=== PATIENT | female | born 1950 | race Caucasian/White ===

== ENCOUNTER 2023-05-06 17:05 | Inpatient (IN) ==
[2023-05-06] MEDS ORDERED: PERMETHRIN 5% CR 60 GM TUBE EXT ONE (17:23)
--- NOTE | 2023-05-06 17:49 | Emergency Department Note ---
Impression & Plan Syncope and collapse, Acute UTI ED Provider Note Provider: Reginaldo Resendiz MD DATE OF SERVICE: 05/06/2023 CHIEF COMPLAINT: Syncope HISTORY OF PRESENT ILLNESS: Patient is a 73-year-old female very distant history of seizures presenting from the [facility] office today after having some an episode when she was having some testing and blood work done where she passed out. I guess there is maybe some question if she had a seizure but she is unsure. States she was not that long and denies falling or any pain currently. Maybe a slight headache earlier but states under some tension. Was affected several weeks ago and currently has most recently been staying with stepmother. There is reports per nursing the patient may have exposure to bedbugs and head lice as well. Has had some edema issues ongoing was evaluated here several weeks ago for this. Patient denies any significant chest pain or nausea or abdominal discomfort. Denies recent illness. States her legs continue to be chronically swollen. States she was working to establish with her PCP today as he has not seen her in several years. States compliance with home medications. PAST MEDICAL HISTORY: As noted above MEDICATIONS: Reviewed home medications SOCIAL HISTORY: Currently residing with stepmother after recent infection PHYSICAL EXAM: GENERAL: alert and oriented in no acute distress on stretcher Head: normocephalic and atraumatic EYES: No injection, discharge or icterus. Exotropia NECK: Trachea midline. Supple. ENT: Mucous membranes pink and moist. LUNGS: Airway patent. No retractions or tachypnea HEART: Regular rate and rhythm. No chest wall tenderness ABDOMEN: Soft and non-tender, without guarding or rebound. SKIN: Acyanotic, warm, dry EXTREMITIES: Patient with approximately 2+ bilateral lower extremity swelling without weeping. Some chronic skin changes and scaly skin noted without signi ficant erythema. NEUROLOGICAL: No aphasia. No facial droop or slurred speech. Normal strength and tone in the extremities. Sensation to gross touch normal. Ambulatory. EK bpm sinus rhythm first-degree AV block. Left intravesicular block. No acute ST segment elevation or depression with a QTc of 475. CONTINUOUS CARDIAC MONITORING: was ordered and showed a heart rate of 70s bpm in sinus rhythm first-degree AV block Patient's laboratory studies and imaging reviewed. Differential includes Vasovagal event, dehydration, infection, hypoglycemia, electrolyte abnormalities, cardiac sources, intracerebral event, pulmonary embolism, seizure, toxicologic, neurologic, as well as other pathologies. IMPRESSION/MEDICAL DECISION MAKING: Reported seizure history on Dilantin. Unclear if she did have a seizure today but seems at baseline now. No significant trauma reported. Basic blood work and EKG be obtained today. Chronic swelling and recently worked up for this. Do not feel we need to do further investigation here. Denies any significant shortness of breath or infectious symptoms. No focal neurological deficit. Has been under some increased rest related to recent housing issues as well as establishing with PCP again today. Was having blood work drawn what ever event happened today. Reviewing the [facility] medical record it appears she was unarousable for about 1 minute according to the note with loss of bladder or bowel function and some clamminess with a transient period of had vomiting. It does not clearly sound like she had any postictal period. Had some rhythmic twi tching of her mouth and I briefly for what I can ascertain from the notes. Given return to baseline however without neurological deficit do not feel we need additional CT imaging of the head and neurological evaluation at this time. Dilantin level and basic labs and EKG were obtained. With the nurse reported possible head lice or bedbugs, nursing will assist with washing cleaning with permethrin. Did order the patient's evening Dilantin dose. No significant anemia or leukocytosis. No significant electrolyte abnormality signs of renal dysfunction. No evidence of elevated troponin or transaminitis. Urine does appear concerning for UTI. Not having significant symptoms but this may have provoked the seizure versus syncope episode today. Discussed with the patient. Currently now not able to return to her living situation given the seizure or syncope today with a UTI discussed further observation here. She was in agreement and the hospitalist contacted. DIAGNOSIS: Syncope and collapse, acute UTI DISPOSITION: Hospitalist will evaluate Patient was agreeable with this plan. Past Med/Surg History Social History Smoking Status: Never smoker Preferred Language: Greek Feels Safe at Home: Yes Allergies Allergies Allergy/AdvReac Type Severity Reaction Status Date / Time Penicillins AdvReac Sweaty Verified 05/06/23 20:55 Home Meds Home Medications Medication Instructions Recorded Confirmed phenytoin sodium extended 100 mg 100 mg PO QID 05/06/23 05/06/23 capsule (Dilantin Extended) phenytoin sodium extended 30 mg 30 mg PO BID 05/06/23 05/06/23 capsule (Dilantin) Results & Data (ED) Vital Signs Vital Signs - 24 hr 05/06/23 17:14 05/06/23 20:09 05/06/23 20:33 Pulse Rate 73 75 76 Pulse Rate [Apical] Pulse Rhythm Regular Pulse Strength Normal Respiratory Rate 20 19 Respiratory Effort / Characteristics Non-Labored Spontaneous Respiratory Depth Normal Respiratory Pattern Regular Blood Pressure 141/80 H Blood Pressure [Left Arm] Blood Pressure Mean 100 Blood Pressure Mean [Left Arm] Blood Pressure Position Sitting Pulse Oximetry 95 97 Oxygen Delivery Method Room Air Room Air Sepsis Recent Fever Within 48 Hours No Sepsis New/Unexplained Change in Mental Status No Sepsis Action Taken by Nursing No Action Required 05/06/23 20:55 Pulse Rate Pulse Rate [Apical] 78 Pulse Rhythm Pulse Strength Respiratory Rate 16 Respiratory Effort / Characteristics Respiratory Depth Respiratory Pattern Blood Pressure Blood Pressure [Left Arm] 150/78 H Blood Pressure Mean Blood Pressure Mean [Left Arm] 102 Blood Pressure Position Pulse Oximetry 97 Oxygen Delivery Method Room Air Sepsis Recent Fever Within 48 Hours Sepsis New/Unexplained Change in Mental Status Sepsis Action Taken by Nursing Laboratory Data 05/06/23 Unknown 05/06/23 Unknown Lab Results 05/06/23 05/06/23 05/06/23 Range/Units 20:16 Unknown Unknown WBC 8.30 (4.8-10.8) K/ul RBC 4.96 (4.20-5.40) M/uL Hgb 14.7 (12.0-16.0) g/dl Hct 42.9 (37.0-47.0) % MCV 86.5 (80.0-100.0) fL MCH 29.6 (25.0-34.0) pg MCHC 34.3 (32.0-36.0) g/dL RDW Std Deviation 43.1 (36.4-46.3) fL RDW Coeff of Rosa 13.6 (11.5-14.5) % Plt Count 214 (130-400) K/uL MPV 10.1 (9.4-12.4) fL Immature Gran % (Auto) 0.2 % Neut % (Auto) 72.2 % Lymph % (Auto) 21.9 % [place] % (Auto) 4.8 % Eos % (Auto) 0.4 % Baso % (Auto) 0.5 % Neut # (Auto) 5.99 (1.40-6.50) K/uL Lymph # (Auto) 1.82 (1.2-3.4) K/uL [place] # (Auto) 0.40 (0.11-0.59) K/uL Eos # (Auto) 0.03 (0-0.50) K/uL Baso # (Auto) 0.04 (0-0.2) K/uL Immature Gran # (Auto) 0.02 (0.01-0.20) K/uL Sodium 137 (136-145) mmol/L Potassium 4.2 (3.5-5.1) mmol/L Chloride 104 (98-107) mmol/L Carbon Dioxide 26 (21-32) mmol/L Anion Gap 7 (3-11) BUN 18 (6-23) mg/dl Creatinine 0.72 (0.6-1.2) mg/dl Est Cr Clr Drug Dosing 92.9 ml/min Est GFR ( Amer) 97.0 ml/min Est GFR (Non-Af Amer) 83.7 ml/min BUN/Creatinine Ratio 25.0 H (10-20) Glucose 200 H (70-99(Fasting)) mg/dl Calcium 8.8 (8.6-10.3) mg/dl Magnesium 2.0 (1.7-2.4) mg/dl Total Bilirubin 0.3 (0.2-1.0) mg/dl AST 15 (13-39) U/L ALT 11 (7-52) U/L Alkaline Phosphatase 98 (34-104) U/L Troponin I High Sens 8.9 (0-14) pg/ml Total Protein 6.9 (6.0-8.3) gm/dl Albumin 3.8 (3.4-5.0) gm/dl Globulin 3.1 (2.5-4.0) gm/dl Albumin/Globulin Ratio 1.2 (0.9-2) TSH (0.300-4.500) uIu/ml Urine Color Yellow Urine Appearance Cloudy A (Clear) Urine pH 7.0 (4.5-7.5) Ur Specific [place] 1.017 (1.000-1.030) Urine Protein Negative (Negative) Urine Glucose (UA) Negative (Negative) Urine Ketones Negative (Negative) Urine Blood Trace H (Negative) Urine Nitrite Positive A (Negative) Urine Bilirubin Negative (Negative) Urine Urobilinogen Negative (Negative) Ur Leukocyte Esterase 3+ H (Negative) Urine WBC (Auto) >30 H (0-5) /hpf Urine RBC (Auto) 5-10 H (0-4) /hpf U Hyaline Cast (Auto) 0 (0-5) /lpf U Epithel Cells (Auto) 10-20 H (0-5) /lpf Urine Bacteria (Auto) 1+ H (Negative) Urine Yeast Not Reportable Phenytoin (10-20) mcg/ml SARS-CoV-2, RNA, NAAT (NEGATIVE) 05/06/23 05/06/23 05/06/23 Range/Units Unknown Unknown Unknown WBC (4.8-10.8) K/ul RBC (4.20-5.40) M/uL Hgb (12.0-16.0) g/dl Hct (37.0-47.0) % MCV (80.0-100.0) fL MCH (25.0-34.0) pg MCHC (32.0-36.0) g/dL RDW Std Deviation (36.4-46.3) fL RDW Coeff of Rosa (11.5-14.5) % Plt Count (130-400) K/uL MPV (9.4-12.4) fL Immature Gran % (Auto) % Neut % (Auto) % Lymph % (Auto) % [place] % (Auto) % Eos % (Auto) % Baso % (Auto) % Neut # (Auto) (1.40-6.50) K/uL Lymph # (Auto) (1.2-3.4) K/uL [place] # (Auto) (0.11-0.59) K/uL Eos # (Auto) (0-0.50) K/uL Baso # (Auto) (0-0.2) K/uL Immature Gran # (Auto) (0.01-0.20) K/uL Sodium (136-145) mmol/L Potassium (3.5-5.1) mmol/L Chloride (98-107) mmol/L Carbon Dioxide (21-32) mmol/L Anion Gap (3-11) BUN (6-23) mg/dl Creatinine (0.6-1.2) mg/dl Est Cr Clr Drug Dosing ml/min Est GFR ( Amer) ml/min Est GFR (Non-Af Amer) ml/min BUN/Creatinine Ratio (10-20) Glucose (70-99(Fasting)) mg/dl Calcium (8.6-10.3) mg/dl Magnesium (1.7-2.4) mg/dl Total Bilirubin (0.2-1.0) mg/dl AST (13-39) U/L ALT (7-52) U/L Alkaline Phosphatase (34-104) U/L Troponin I High Sens (0-14) pg/ml Total Protein (6.0-8.3) gm/dl Albumin (3.4-5.0) gm/dl Globulin (2.5-4.0) gm/dl Albumin/Globulin Ratio (0.9-2) TSH 0.871 (0.300-4.500) uIu/ml Urine Color Urine Appearance (Clear) Urine pH (4.5-7.5) Ur Specific [place] (1.000-1.030) Urine Protein (Negative) Urine Glucose (UA) (Negative) Urine Ketones (Negative) Urine Blood (Negative) Urine Nitrite (Negative) Urine Bilirubin (Negative) Urine Urobilinogen (Negative) Ur Leukocyte Esterase (Negative) Urine WBC (Auto) (0-5) /hpf Urine RBC (Auto) (0-4) /hpf U Hyaline Cast (Auto) (0-5) /lpf U Epithel Cells (Auto) (0-5) /lpf Urine Bacteria (Auto) (Negative) Urine Yeast Phenytoin 8.4 L (10-20) mcg/ml SARS-CoV-2, RNA, NAAT NEGATIVE (NEGATIVE) Administered Medications Aztreonam 2,000 mg/ Dextrose 110 mls @ 100 mls/hr IV NOW STA; Protocol Stop: 05/06/23 22:26 Last Admin: 05/06/23 21:54 Dose: 100 mls/hr Documented By: ML Sodium Chloride (Nss 1000ml) 1,000 mls @ 60 mls/hr IV .[id number] ONE Stop: 05/07/23 14:13 Last Admin: 05/06/23 21:54 Dose: 60 mls/hr Documented By: ML Discontinued Medications Ceftriaxone Sodium (Rocephin) 2,000 mg in 70 mls @ 140 mls/hr IV NOW STA Stop: 05/06/23 21:32 Last Admin: 05/06/23 21:22 Dose: Not Given Documented By: NGOC Permethrin (Permethrin 5% Cr 60 Gm Tube) 1 appln EXT ONCE ONE Stop: 05/06/23 17:24 Last Admin: 05/06/23 19:45 Dose: 1 appln Documented By: NGOC Phenytoin Sodium (Phenytoin Sodium Er 100 Mg Cap) 200 mg PO NOW STA Stop: 05/06/23 20:21 Last Admin: 05/06/23 20:54 Dose: 200 mg Documented By: NGOC Phenytoin Sodium (Phenytoin Sodium Er 30 Mg Cap) 60 mg PO NOW STA Stop: 05/06/23 20:21 Last Admin: 05/06/23 20:54 Dose: 60 mg Documented By: NGOC Discharge Plan Visit Data Chief Complaint: Syncope ED Provider: Reginaldo Resendiz Discharge Problem: Syncope and collapse, Acute UTI Patient Disposition: Being Evaluated by Hospitalist Forms Stand Alone Forms: My [facility] Prescriptions Prescriptions: No Action phenytoin sodium extended [Dilantin Extended] 100 mg capsule 100 mg PO QID Dilantin 30 mg Capsule 30 mg PO BID Referrals Referrals: Kiara Wilson DO [Primary Care Provider] -
[2023-05-06] MEDS ORDERED: PHENYTOIN SODIUM ER 100 MG CAP PO STA (20:20)
[2023-05-06] MEDS ORDERED: PHENYTOIN SODIUM ER 30 MG CAP PO STA (20:20)
[2023-05-06 20:34] LABS: Basophils # (auto) 0.04 K/uL (0-0.2); Basophils % (auto) 0.5 %; Eosinophils # (auto) 0.03 K/uL (0-0.50); Eosinophils % (auto) 0.4 %; Hematocrit (blood only) 42.9 % (37.0-47.0); Hemoglobin 14.7 g/dl (12.0-16.0); Immature Granulocytes # (auto) 0.02 K/uL (0.01-0.20); Immature Granulocytes % (auto) 0.2 %; Lymphocytes # (auto) 1.82 K/uL (1.2-3.4); Lymphocytes % (auto) 21.9 %; Mean Corpuscular Hemoglobin 29.6 pg (25.0-34.0); Mean Corpuscular Hgb Conc 34.3 g/dL (32.0-36.0); Mean Corpuscular Volume 86.5 fL (80.0-100.0); Mean Platelet Volume 10.1 fL (9.4-12.4); Monocytes % (auto) 4.8 %; Neutrophils # (auto) 5.99 K/uL (1.40-6.50); Neutrophils % (auto) 72.2 %; Platelet Count 214 K/uL (130-400); RDW Coefficient of Variation 13.6 % (11.5-14.5); RDW Standard Deviation 43.1 fL (36.4-46.3); Red Blood Count 4.96 M/uL (4.20-5.40)
[2023-05-06 20:36] LABS: Appearance Urine Cloudy (Clear); Bilirubin Urine Negative (Negative); Blood Urine Trace (Negative); Cast Urine Automated 0 /lpf (0-5); Color Urine Yellow; Glucose Urine UA Negative (Negative); Ketones Urine Negative (Negative); Leukocyte Esterase Urine 3+ (Negative); Nitrite Urine Positive (Negative); Protein Urine Negative (Negative); Specific Gravity Urine 1.017 (1.000-1.030); Urobilinogen Urine Negative (Negative); WBC Urine Automated >30 /hpf (0-5)
[2023-05-06 20:53] LABS: Albumin Globulin Ratio 1.2 (0.9-2); Albumin Level 3.8 gm/dl (3.4-5.0); Bilirubin,Total 0.3 mg/dl (0.2-1.0); Calcium 8.8 mg/dl (8.6-10.3); Creatinine Clr Calc Pharmacy 92.9 ml/min; Est GFR (Non-African American) 83.7 ml/min; Globulin 3.1 gm/dl (2.5-4.0); Potassium 4.2 mmol/L (3.5-5.1); Total Protein 6.9 gm/dl (6.0-8.3)
[2023-05-06 21:00] LABS: Troponin I High Sensitivity 8.9 pg/ml (0-14)
[2023-05-06 21:01] LABS: Bacteria Urine Automated 1+ (Negative)
[2023-05-06] MEDS ORDERED: cefTRIAXone SODIUM 2,000 MG/70 ML BAG IV STA (21:03)
[2023-05-06] MEDS ORDERED: AZTREONAM 2,000 MG in DEXTROSE 5% 100 ML IV STA (21:21)
[2023-05-06] MEDS ORDERED: LORazepam 0.5 MG TAB PO PRN (21:29)
[2023-05-06] MEDS ORDERED: SODIUM CHLORIDE 0.9% 1000ML 1,000 ML IV ONE (21:34)
--- NOTE | 2023-05-07 01:23 | CT Scan Report ---
Exam(s): CT HEAD Without Contrast EXAM: CT Head Without Intravenous Contrast CLINICAL HISTORY: Reason for exam: crowley, sz. TECHNIQUE: Axial computed tomography images of the head/brain without intravenous contrast. Automated exposure control was utilized for the study. A dose lowering technique was utilized adhering to the principles of ALARA. COMPARISON: No relevant prior studies available. FINDINGS: Brain: The cerebral and cerebellar sulci are mildly prominent consistent with mild brain atrophy. There are a few areas of decreased attenuation in the deep cerebral white matter consistent with mild small vessel ischemic/degenerative changes. No hemorrhage. Ventricles: Unremarkable. No ventriculomegaly. Bones/joints: Unremarkable. No acute fracture. Soft tissues: Unremarkable. Vasculature: Atherosclerotic disease. Sinuses: Unremarkable as visualized. No acute sinusitis. Mastoid air cells: Unremarkable as visualized. No mastoid effusion. IMPRESSION: No acute findings in the head/brain. Electronically signed by: Charly Samuels MD 05/07/23 01:22 AM
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
[2023-05-07] MEDS ORDERED: PROMETHAZINE HCL 12.5 MG in SODIUM CHLORIDE 0.9% 50 ML IV PRN (02:44)
[2023-05-07] MEDS ORDERED: ACETAMINOPHEN 325 MG TAB PO PRN (02:44)
[2023-05-07] MEDS ORDERED: LORazepam 2 MG/1 ML VIAL IV PRN (02:44)
[2023-05-07] MEDS ORDERED: oxyCODONE HCL IR 5 MG TAB (IMMEDIATE RELEASE) PO PRN (02:44)
[2023-05-07 07:16] LABS: Estimated Average Glucose 229 mg/dl; Hemoglobin A1C 9.6 % (4.5-5.6)
[2023-05-07] MEDS ORDERED: GLUCAGON FOR INJ 1 MG VIAL SQ PRN (07:54)
[2023-05-07] MEDS ORDERED: DEXTROSE 50% 50 ML SYRINGE IV PRN (07:54)
[2023-05-07] MEDS ORDERED: CARBOHYDRATES FOR HYPOGLYCEMIA PO PRN (07:54)
[2023-05-07] MEDS ORDERED: GLUCOSE 10 TAB/TUBE PO PRN (07:54)
[2023-05-07] MEDS ORDERED: GLUCOSE 40% GEL 15 GM TUBE PO PRN (07:54)
[2023-05-07] MEDS ORDERED: PHARMACY GLYCEMIC MGMT CONSULT PRN (07:55)
[2023-05-07 09:01] LABS: Basophils # (auto) 0.02 K/uL (0-0.2); Basophils % (auto) 0.3 %; Eosinophils # (auto) 0.07 K/uL (0-0.50); Eosinophils % (auto) 1.2 %; Hematocrit (blood only) 42.8 % (37.0-47.0); Hemoglobin 14.6 g/dl (12.0-16.0); Immature Granulocytes # (auto) 0.01 K/uL (0.01-0.20); Immature Granulocytes % (auto) 0.2 %; Lymphocytes # (auto) 1.85 K/uL (1.2-3.4); Mean Corpuscular Hemoglobin 29.7 pg (25.0-34.0); Mean Corpuscular Hgb Conc 34.1 g/dL (32.0-36.0); Mean Platelet Volume 9.8 fL (9.4-12.4); Monocytes # (auto) 0.51 K/uL (0.11-0.59); Monocytes % (auto) 8.6 %; Neutrophils % (auto) 58.7 %; Platelet Count 220 K/uL (130-400); RDW Coefficient of Variation 13.8 % (11.5-14.5); RDW Standard Deviation 43.6 fL (36.4-46.3); Red Blood Count 4.92 M/uL (4.20-5.40); White Blood Count 5.96 K/ul (4.8-10.8)
[2023-05-07 09:18] LABS: BUN Creatinine Ratio 20.6 (10-20); Creatinine Clr Calc Pharmacy 96.1 ml/min; Est GFR (African American) 101.3 ml/min; Est GFR (Non-African American) 87.4 ml/min; Potassium 3.8 mmol/L (3.5-5.1)
[2023-05-07] MEDS: INSULIN ASPART PER UNIT CHARGE SC SCH ×4 (09:23→20:22)
[2023-05-07] MEDS: LANTUS PER UNIT CHARGE SQ SCH (09:23)
[2023-05-07] MEDS: AZTREONAM 1,000 MG in DEXTROSE 5% 100 ML IV SCH ×2 (09:30→17:47)
--- NOTE | 2023-05-07 09:55 | Neurology Consultation ---
Date of Consultation May 07, 2023 Assessment & Plan (1) Breakthrough seizure: Possible breakthrough seizure in the setting of missed medications and psychosocial factors as well as UTI. There is no reason to reinvent the seizure workup given her history. Can discontinue MRI and EEG. Would simplify her seizure medication regimen to help with adherence. Recommend dilantin 200mg BID. Would not continue the extra 60mg, suspect that was added due to low levels in the past because of missed doses. 400mg daily may in fact be a high dose for her if she is compliant. Can re-check a level in a week. Otherwise can be discharged from a neurologic perspective. Please contact us with further questions. Telehealth Consultation Telehealth Information Telehealth Information: I performed this visit using a real-time telehealth connection between my location and the patients location ([facility]). After connecting through interactive tele-video, patient was identified by name and date of and/or wristband check.Patient (or authorized healthcare inside sales account representative) was informed that this was a telemedicine visit and it was being conducted confidentially over secure lines. My office door was closed and no one else was present in the room with me.Patient (or authorized healthcare inside sales account representative) provided consent to proceed with the visit, expressed an understanding of privacy and security of the telemedicine visit, and gave permission to have a hospital inside sales account representative in the room in order to assist with the visit and to conduct portions of the visit, as needed. I informed the pat ient (or authorized healthcare inside sales account representative) that I reviewed their record and presented the opportunity for them to ask any questions regarding the visit today. The patient agreed to participate. History of Present Illness Reason for Consultation: Seizure Requesting Physician: Dr. Vergara Attending Physician: Gentry Vergara MD History of Present Illness Merary Molina is a 73yo F with a history of epilepsy but well controlled on a complicated regimen of dilantin 100mg 4x daily and 30mg BID. She may have had a breakthrough seizure in the setting of a complex living situation and possible missed med doses. She recalls feeling hot before losing consciousness so is not sure if this was a seizure or syncope. She can not tell me why she is on such a complicated dilantin regimen. Otherwise tangential speech makes any further history difficult. Allergies Allergy/AdvReac Type Severity Reaction Status Date / Time Penicillins AdvReac Sweaty Verified 05/06/23 20:55 Home Medications Medication Instructions Recorded Confirmed Type phenytoin sodium extended 100 mg 100 mg PO QID 05/06/23 05/06/23 History capsule (Dilantin Extended) phenytoin sodium extended 30 mg 30 mg PO BID 05/06/23 05/06/23 History capsule (Dilantin) Patient History Social History Smoking Status: Never smoker Hx Alcohol Use: No Hx Substance Use: No Preferred Language: Yi Communication Ability: Effective Network Engineer Required: No Beliefs That Will Affect Care: None Current Living Situation: Family Current Living Situation Comment: unknown where will be staying Other Information That Helps Us Care for You: No Feels Safe at Home: Yes Safety Concerns: Feels Safe At This Time Assistive Devices: Cane Assistive Devices Comment: cane Review of Systems +seizure Physical Exam Neurological Examination: Mental Status: Awake and alert. Fluent with tangential speech. Comprehension intact. Cranial Nerves: II: pupils 3/3 to 2/2 III/IV/: Versions intact without nystagmus, no gaze preference. VII: Facial expression symmetric VIII: Hearing intact to voice IX/X: Palate elevates symmetrically Motor: Spontaneous movements were antigravity and symmetric Coordination: Movements were non-ataxic Reflexes: Unable to assess over telemedicine Results & Data Vital Signs (Past 12 Hours) Vital Signs Temp Pulse Pulse Resp BP Pulse Ox O2 Del Method 05/07/23 09:44 Room Air 05/07/23 08:32 36.6 C 67 18 129/75 96 Room Air 05/07/23 07:45 65 05/07/23 02:52 65 05/07/23 02:47 36.8 C 66 16 144/66 H 96 Room Air 05/07/23 01:21 72 05/06/23 23:13 81 16 129/56 L 96 Room Air Laboratory Results Abnormal lab results 05/06/23 05/06/23 05/06/23 Range/Units 20:16 Unknown Unknown BUN/Creatinine Ratio 25.0 H (10-20) Glucose 200 H (70-99(Fasting)) mg/dl POC Glucose (70-99) mg/dl Hemoglobin A1c (4.5-5.6) % Urine Appearance Cloudy A (Clear) Urine Blood Trace H (Negative) Urine Nitrite Positive A (Negative) Ur Leukocyte Esterase 3+ H (Negative) Urine WBC (Auto) >30 H (0-5) /hpf Urine RBC (Auto) 5-10 H (0-4) /hpf U Epithel Cells (Auto) 10-20 H (0-5) /lpf Urine Bacteria (Auto) 1+ H (Negative) Phenytoin 8.4 L (10-20) mcg/ml 05/07/23 05/07/23 05/07/23 Range/Units 00:07 08:22 08:33 BUN/Creatinine Ratio 20.6 H (10-20) Glucose 183 H (70-99(Fasting)) mg/dl POC Glucose 190 H (70-99) mg/dl Hemoglobin A1c 9.6 H (4.5-5.6) % Urine Appearance (Clear) Urine Blood (Negative) Urine Nitrite (Negative) Ur Leukocyte Esterase (Negative) Urine WBC (Auto) (0-5) /hpf Urine RBC (Auto) (0-4) /hpf U Epithel Cells (Auto) (0-5) /lpf Urine Bacteria (Auto) (Negative) Phenytoin (10-20) mcg/ml Diagnostic Findings CT head - Unremarkable
[2023-05-07] MEDS: PHENYTOIN SODIUM ER 100 MG CAP PO SCH ×2 (10:36→20:34)
[2023-05-07] MEDS: ENOXAPARIN INJ 40 MG/0.4 ML SYR SQ SCH (10:36)
--- NOTE | 2023-05-07 11:07 | Pharmacy Report ---
Pharmacy Glycemic Short Note 2 - Date of Service May 07, 2023 - Glycemic Short BSG Results (Last 24 hours): 05/06/23 05/07/23 05/07/23 Unknown 08:22 08:33 Glucose 200 H 183 H POC Glucose 190 H OUTPATIENT ANTIDIABETIC REGIMEN: * n/a * A1c 9.6% on admission ASSESSMENT: * 73 year old admitted with breakthrough seizure. Pharmacy consulted for glycemic management. No medications listed on home medication list for diabetes. A1c elevated on admission. * Will be conservative and plan to start basal insulin ~0.2 units/kg daily (adj bw) and novolog stress 1/2 PLAN FOR INPATIENT GLYCEMIC CONTROL: * Hold outpatient oral diabetes medications * Basal insulin * Lantus 15 units daily * Bolus insulin * NovoLog per scale ACHS or Q6hrs while NPO * Goal Range: Low 120 mg/dL - High 160 mg/dL * Correction Factor: 30 mg/dL/unit * Nutritional / Prandial insulin per carb ratio of 1 unit per 10 grams CHO consumed
--- NOTE | 2023-05-07 12:14 | Electrocardiogram Report ---
Test Reason : Blood Pressure : / mmHG Vent. Rate : 069 BPM Atrial Rate : 069 BPM P-R Int : 294 ms QRS Dur : 112 ms QT Int : 444 ms P-R-T Axes : 050 -47 037 degrees QTc Int : 475 ms Sinus rhythm with 1st degree A-V block Left anterior fascicular block Minimal voltage criteria for LVH, may be normal variant Possible Anterior infarct , age undetermined Abnormal ECG When compared with ECG of 11-APR-2023 13:18, Premature ventricular complexes are no longer Present Confirmed by Hector Perry ([id number]) on 05/07/2023 12:13:38 PM Referred By: REFERRED SELF Confirmed By:Hector Perry
--- NOTE | 2023-05-07 15:34 | Hospitalist Progress Note ---
Date of Service May 07, 2023 Assessment & Plan (1) Breakthrough seizure: Plan: Breakthrough seizure H/O Posttraumatic seizure disorder Subtherapeutic Dilantin level ? Medication compliance/missed doses -CT Head:No acute findings in the head/brain. No indication for MRI, EEG per neurology Appreciate neurology input Dilantin dose increased to 200 mg twice daily Continue seizure precautions We will need to recheck Dilantin level in 1 week Needs follow-up with neurology as outpatient DM II--New diagnosis HbA1C: 9.6 Continue insulin per protocol Monitor BGs Diabetic area consulted Abnormal urinalysis Rule out UTI Patient denies any urinary frequency, hematuria, abdominal pain Urine culture pending Empirically on Azactam Chronic lymphedema Venous Doppler from 04/11/23:Currently there is normal compressibility of the deep venous system from the common femoral vein through the proximal calf veins. No superficial venous thrombosis is identified. Will benefit from following lymphedema clinic as outpatient Possible head lice/bedbug infestation as per EMS S/P Permethrin application in ED Social issues Case management to help with discharge planning DVT Px: Lovenox SQ Code Status Full code Admission and Anticipated Discharge Date Admission Date: May 07, 2023 Subjective Patient is seen and examined at bedside Denies any chest pain, dyspnea, dizziness, nausea, vomiting, abdominal pain No other complaints No seizure activity since hospitalization Discussed with neurologist today Review of Systems Review of Systems: All systems reviewed & are unremarkable except as noted in Subjective Physical Exam Physical Exam: Physical Exam: Vitals signs as noted above General Appearance:Obese, no apparent distress Head: normocephalic, Atraumatic Eyes: normal inspection, EOMI Neck: supple, Trachea midline Respiratory/Chest: Decreased breath sounds, CTA, No accessory muscle use Cardiovascular: S1, S2, No murmur Abdomen/GI:Soft, Non tender, Bowel sounds present Extremities/Musculoskeletal:normal inspection, B/L LE edema, lymphedematous changes Neurologic/Psych:AAOX3, grossly no focal neurological deficits Skin: normal color, warm Results & Data Results & Data Vital Signs (Past 12 Hours) Vital Signs Temp Pulse Pulse Resp BP Pulse Ox O2 Del Method 05/07/23 12:30 36.5 C 74 16 136/70 95 Room Air 05/07/23 09:44 Room Air 05/07/23 08:32 36.6 C 67 18 129/75 96 Room Air 05/07/23 07:45 65 Laboratory Results Short CBC 05/06/23 05/07/23 Range/Units Unknown 08:33 WBC 8.30 5.96 (4.8-10.8) K/ul Hgb 14.7 14.6 (12.0-16.0) g/dl Hct 42.9 42.8 (37.0-47.0) % Plt Count 214 220 (130-400) K/uL BMP 05/06/23 05/07/23 Unknown 08:33 Sodium 137 138 Potassium 4.2 3.8 Chloride 104 104 Carbon Dioxide 26 28 BUN 18 14 Creatinine 0.72 0.68 Glucose 200 H 183 H Calcium 8.8 9.0 Liver Function 05/06/23 Range/Units Unknown Total Bilirubin 0.3 (0.2-1.0) mg/dl AST 15 (13-39) U/L ALT 11 (7-52) U/L Alkaline Phosphatase 98 (34-104) U/L Albumin 3.8 (3.4-5.0) gm/dl Urine 05/06/23 Range/Units 20:16 Urine Color Yellow Urine Appearance Cloudy A (Clear) Urine pH 7.0 (4.5-7.5) Ur Specific [place] 1.017 (1.000-1.030) Urine Protein Negative (Negative) Urine Glucose (UA) Negative (Negative)
[2023-05-07] MEDS ORDERED: PHENYTOIN SODIUM ER 30 MG CAP PO SCH (21:00)
[2023-05-08] MEDS ORDERED: INSULIN ASPART PER UNIT CHARGE SC SCH
[2023-05-08] MEDS: AZTREONAM 1,000 MG in DEXTROSE 5% 100 ML IV SCH ×4 (00:39→22:30)
[2023-05-08 06:54] LABS: BUN Creatinine Ratio 22.2 (10-20); Creatinine Clr Calc Pharmacy 81.3 ml/min; Est GFR (African American) 84.1 ml/min; Est GFR (Non-African American) 72.6 ml/min; Potassium 3.7 mmol/L (3.5-5.1)
[2023-05-08] MEDS: LANTUS PER UNIT CHARGE SQ SCH (08:53)
[2023-05-08] MEDS: INSULIN ASPART PER UNIT CHARGE SC SCH ×4 (08:53→20:20)
[2023-05-08] MEDS: PHENYTOIN SODIUM ER 100 MG CAP PO SCH ×2 (08:58→21:02)
[2023-05-08] MEDS: ENOXAPARIN INJ 40 MG/0.4 ML SYR SQ SCH (08:59)
--- NOTE | 2023-05-08 15:26 | Hospitalist Progress Note ---
Date of Service May 08, 2023 Assessment & Plan (1) Breakthrough seizure: Plan: Breakthrough seizure H/O Posttraumatic seizure disorder Subtherapeutic Dilantin level ? Medication compliance/missed doses -CT Head:No acute findings in the head/brain. No indication for MRI, EEG per neurology Appreciate neurology input Dilantin dose increased to 200 mg twice daily Continue seizure precautions We will need to recheck Dilantin level in 1 week Needs follow-up with neurology as outpatient For repeat Dilantin levels subtherapeutic, plan to increase Dilantin to 200 mg a.m., 300 mg p.m. (discussed with neurology on 05/08/23) DM II--New diagnosis HbA1C: 9.6 Continue insulin per protocol Monitor BGs manager food beverage consulted Abnormal urinalysis Rule out UTI Patient denies any urinary frequency, hematuria, abdominal pain Urine culture: Gram-positive cocci Empirically on Azactam Chronic lymphedema Venous Doppler from 04/11/23:Currently there is normal compressibility of the deep venous system from the common femoral vein through the proximal calf veins. No superficial venous thrombosis is identified. Will benefit from following lymphedema clinic as outpatient Possible head lice/bedbug infestation as per EMS S/P Permethrin application in ED Social issues Case management to help with discharge planning DVT Px: Lovenox SQ Code Status Full code Disposition Case management to help with discharge planning Admission and Anticipated Discharge Date Admission Date: May 07, 2023 Subjective Patient is seen and examined at bedside No new complaints Patient concerned about her displacement Denies any chest pain, dyspnea, dizziness, nausea, vomiting, abdominal pain Review of Systems Review of Systems: All systems reviewed & are unremarkable except as noted in Subjective Physical Exam Physical Exam: Physical Exam: Vitals signs as noted above General Appearance:Obese, no apparent distress Head: normocephalic, Atraumatic Eyes: normal inspection, EOMI Neck: supple, Trachea midline Respiratory/Chest: Decreased breath sounds, CTA, No accessory muscle use Cardiovascular: S1, S2, No murmur Abdomen/GI:Soft, Non tender, Bowel sounds present Extremities/Musculoskeletal:normal inspection, B/L LE edema, lymphedematous changes Neurologic/Psych:AAOX3, grossly no focal neurological deficits Skin: normal color, warm Results & Data Results & Data Vital Signs (Past 12 Hours) Vital Signs Temp Pulse Pulse Resp BP Pulse Ox O2 Del Method 05/08/23 15:15 36.6 C 65 18 126/67 95 Room Air 05/08/23 07:15 56 L 05/08/23 11:34 Room Air 05/08/23 07:48 36.4 C L 57 L 18 114/56 L 97 Room Air Laboratory Results [facility] 05/08/23 05:52 Sodium 138 Potassium 3.7 Chloride 103 Carbon Dioxide 28 BUN 18 Creatinine 0.81 Glucose 135 H Calcium 9.0
[2023-05-09 06:53] LABS: Calcium 8.9 mg/dl (8.6-10.3); Creatinine Clr Calc Pharmacy 81.5 ml/min; Est GFR (African American) 84.1 ml/min; Est GFR (Non-African American) 72.6 ml/min; Potassium 3.9 mmol/L (3.5-5.1)
[2023-05-09] MEDS: INSULIN ASPART PER UNIT CHARGE SC SCH ×4 (08:45→21:20)
[2023-05-09] MEDS: LANTUS PER UNIT CHARGE SQ SCH (08:50)
[2023-05-09] MEDS: PHENYTOIN SODIUM ER 100 MG CAP PO SCH ×2 (08:54→21:39)
[2023-05-09] MEDS: ENOXAPARIN INJ 40 MG/0.4 ML SYR SQ SCH (08:54)
[2023-05-09] MEDS: AZTREONAM 1,000 MG in DEXTROSE 5% 100 ML IV SCH (08:55)
--- NOTE | 2023-05-09 10:38 | Pharmacy Report ---
Pharmacy Glycemic Short Note 2 - Date of Service May 09, 2023 - Glycemic Short BSG Results (Last 24 hours): 05/08/23 05/08/23 05/08/23 11:49 16:31 20:06 Glucose POC Glucose 145 H 137 H 140 H 05/09/23 05/09/23 06:10 07:50 Glucose 129 H POC Glucose 123 H OUTPATIENT ANTIDIABETIC REGIMEN: * n/a * A1c 9.6% on admission ASSESSMENT: 05/09/23 * Patient's BSGs yesterday were [phone] mg/dL. Patient received 29 units (15 units of Lantus + 14 units of Novolog). * Fasting today is 123 mg/dL. * Continue current regimen as BSGs well controlled. BACKGROUND * 73 year old admitted with breakthrough seizure. Pharmacy consulted for glycemic management. No medications listed on home medication list for diabetes. A1c elevated on admission. * Will be conservative and plan to start basal insulin ~0.2 units/kg daily (adj bw) and novolog stress 1/2 PLAN FOR INPATIENT GLYCEMIC CONTROL: * Hold outpatient oral diabetes medications * Basal insulin * Lantus 15 units daily * Bolus insulin * NovoLog per scale ACHS or Q6hrs while NPO * Goal Range: Low 110 mg/dL - High 140 mg/dL * Correction Factor: 25 mg/dL/unit * Nutritional / Prandial insulin per carb ratio of 1 unit per 8 grams CHO consumed
[2023-05-09] MEDS: NITROFURANTOIN MONOHYDRATE 100 MG CAP PO SCH ×2 (13:57→21:39)
--- NOTE | 2023-05-09 15:35 | Hospitalist Progress Note ---
Date of Service May 09, 2023 Assessment & Plan (1) Breakthrough seizure: Plan: Breakthrough seizure H/O Posttraumatic seizure disorder Subtherapeutic Dilantin level ? Medication compliance/missed doses -CT Head:No acute findings in the head/brain. No indication for MRI, EEG per neurology Appreciate neurology input Dilantin dose increased to 200 mg twice daily Continue seizure precautions Will need to recheck Dilantin level in 1 week Needs follow-up with neurology as outpatient For repeat Dilantin levels subtherapeutic, plan to increase Dilantin to 200 mg a.m., 300 mg p.m. (discussed with neurology on 05/08/23) Plan to discharge once placement available DM II--New diagnosis HbA1C: 9.6 Continue insulin per protocol Monitor BGs certified adapted physical educator consulted Possible UTI Abnormal urinalysis Urine culture: Gram-positive cocci Empirically on Azactam>> transition to nitrofurantoin Chronic lymphedema Venous Doppler from 04/11/23:Currently there is normal compressibility of the deep venous system from the common femoral vein through the proximal calf veins. No superficial venous thrombosis is identified. Will benefit from following lymphedema clinic as outpatient Possible head lice/bedbug infestation as per EMS S/P Permethrin application in ED Social issues Case management to help with discharge planning DVT Px: Lovenox SQ Code Status Full code Disposition Case management to help with discharge planning Admission and Anticipated Discharge Date Admission Date: May 07, 2023 Subjective Patient is seen and examined at bedside No significant change from yesterday Waiting for placement Denies any chest pain, dyspnea, dizziness, nausea, vomiting, abdominal pain No seizure activity since hospitalization Review of Systems Review of Systems: All systems reviewed & are unremarkable except as noted in Subjective Physical Exam Physical Exam: Physical Exam: Vitals signs as noted above General Appearance:Obese, no apparent distress Head: normocephalic, Atraumatic Eyes: normal inspection, EOMI Neck: supple, Trachea midline Respiratory/Chest: Decreased breath sounds, CTA, No accessory muscle use Cardiovascular: S1, S2, No murmur Abdomen/GI:Soft, Non tender, Bowel sounds present Extremities/Musculoskeletal:normal inspection, B/L LE edema, lymphedematous changes Neurologic/Psych:AAOX3, grossly no focal neurological deficits Skin: normal color, warm Results & Data Results & Data Vital Signs (Past 12 Hours) Vital Signs Temp Pulse Pulse Resp BP Pulse Ox O2 Del Method 05/09/23 11:11 36.5 C 62 18 109/64 93 Room Air 05/09/23 08:00 69 05/09/23 07:30 36.6 C 72 18 122/65 94 Room Air 05/09/23 04:00 36.4 C L 63 20 112/65 96 Room Air Laboratory Results [facility] 05/09/23 06:10 Sodium 137 Potassium 3.9 Chloride 104 Carbon Dioxide 27 BUN 17 Creatinine 0.81 Glucose 129 H Calcium 8.9
[2023-05-10] MEDS: INSULIN ASPART PER UNIT CHARGE SC SCH ×4 (08:50→20:36)
--- NOTE | 2023-05-10 09:01 | Hospitalist Progress Note ---
Date of Service May 10, 2023 Assessment & Plan (1) Syncope and collapse: (2) Breakthrough seizure: (3) New onset type 2 diabetes mellitus: (4) Acute UTI: (5) Homelessness: (6) Food insecurity: (7) Infestation by bed bug: Plan Loss of consciousness surrounding a stressful blood draw situation in the office. Etiologies include but not limited to vasovagal syncope vs breakthrough seizure She has a H/O Posttraumatic seizure disorder and a subtherapeutic Dilantin level ? Medication compliance/missed doses -CT Head:No acute findings in the head/brain. No indication for MRI, EEG per neurology Dilantin regimen was simplified to 200mg BID, reducing her total dose by 60mg daily Recheck dilantin level in one week with follow-up with neurology as outpatient For repeat Dilantin levels that return subtherapeutic, plan to increase Dilantin to 200 mg a.m., 300 mg p.m. (discussed with neurology on 05/08/23) Plan to discharge once placement available DM II--New diagnosis HbA1C: 9.6 Continue insulin per protocol Monitor BGs cover cutter consulted and educated patient on starting metformin at discharge transition Currently receiving insulin inpatient and meeting glycemic targets. Lifestyle changes were recommended including eliminating sugar-sweetened drinks, and diet modifications including more vegetables and less carbs. Plan to add metformin ER 500mg once daily (need to check insurance coverage for this or utilize $4 list option) and discharge with BSG meter and ways to monitor her BSG at home. She will need ophthalmology and podiatry referrals in outpatient setting. 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 Chronic lymphedema Venous Doppler from 04/11/23:Currently there is normal compressibility of the deep venous system from the common femoral vein through the proximal calf veins. No superficial venous thrombosis is identified. Will benefit from following lymphedema clinic as outpatient Possible head lice/bedbug infestation as per EMS S/P Permethrin application in ED ' This is evidence of her poor hygeine referenced by family above. Social issues Case management to help with discharge planning Will also ask psychiatry to ensure there are no obvious mental health issues that may be causing an obstacle for improved QOL and health. DVT Px: Lovenox SQ Code Status Full code Disposition Case management to help with discharge planning Leigh Johnson DO [facility] Hospitalist Admission and Anticipated Discharge Date Admission Date: May 07, 2023 Subjective 73 yo F with recent syncopal episode Doing well today overall with no new symptoms She has not had further seizures since admission She reviewed the story with me stating that she had a presyncopal aura after being told she would be getting her blood drawn in the clinic She doesn't do well with needles and there were issues with the equipment surrounding the blood draw which made her more nervous She put her head between her legs to try to calm down. She was SOB and diaphoretic at that point. She ultimately lost consciousness and when she awoke was clear and knew what took place. She does report a slight bowel incontinence and urinary incontinence on her pad. Per the office note, she lost consciousness and was unarousable for about 1 minute, losing control of bowel and bladder during the episode. She was not seen to have any tonic clonic jerking but had some unlateral twitching of her mouth and eye on the right side. She was oriented to person and place right after She reports a long history of no seizures on dilantin regimen This dilantin dose was actually decreased from 460mg total daily to 400mg total daily per neuro and she remains stable She is eccentric and demonstrates flight of ideas. It is very difficult to focus her on one topic After living in her apt for 17 years she was evicted, she reports because of issues with her neighbor She depends on food stamps and utilizes the [employer] housing system, with limited resources She told me a few things that were concerning including that her hair, which is in a long matted braid, was ruined by a cable knit sweater that she laid on one night and that her hair has been this way for 2-3 years now. She also mentioned not leaving her home to even step outside her apt for 2 years at a time. Per CM call with her brother, family has concerns for patinet being able to care for herself and states she has a long history of hoarding, illogical thought processes, unkempt appearance and poor hygeine. Currently, she is medically stable and is in transition for a more permanent housing situation. She is very kind in her words about her family and neighbors. Review of Systems Review of Systems: All systems were reviewed and negative except as indicated on subjective above. Physical Exam Physical Exam: CONSTITUTIONAL: WNWD, vitals as above, generally well-appearing, NAD EYES: +strabismus noted, +bespectacled, normal conjunctivae, no scleral icterus ENT: external ear and nose normal, MMM NECK: trachea midline RESPIRATORY: clear to auscultation bilaterally, no crackles, rales or wheezes, normal respiratory effort CARDIOVASCULAR: regular rate and rhythm, S1 and 2 heard without murmurs, gallops or rubs, no JVD, no peripheral edema CHEST: inspection of chest was normal GASTROINTESTINAL: soft, nontender, ND, no guarding MUSCULOSKELETAL: strength 5/5 throughout, head is normocephalic and atraumatic SKIN: warm and dry NEUROLOGIC: CN 2-12 grossly intact, no sensory deficit, normal cognition, normal speech, no tremor PSYCHIATRIC: alert cooperative and oriented to person, place and time. Euthymic mood, makes good eye contact, language grossly intact, recent and remote memory grossly intact. Results & Data Results & Data Vital Signs (Past 12 Hours) Vital Signs Temp Pulse Pulse Resp BP Pulse Ox O2 Del Method 05/10/23 03:51 36.9 C 69 18 102/46 L 94 Room Air 05/10/23 00:37 60 05/09/23 22:00 36.5 C 60 20 122/66 95 Room Air Medications Administered Current Inpatient Medications Acetaminophen (Acetaminophen 325 Mg Tab) 650 mg PO Q4H PRN PRN Reason: Pain or Fever Stop: 06/06/23 02:43 Dextrose (Dextrose 50% 50 Ml Syringe) 25 - 50 ml IV UD PRN; Protocol PRN Reason: Hypoglycemia Protocol Stop: 06/06/23 07:53 Enoxaparin Sodium (Enoxaparin Inj 40 Mg/0.4 Ml Syr) 40 mg SQ QAM [facility] Stop: 06/06/23 08:59 Last Admin: 05/09/23 08:54 Dose: 40 mg Glucagon (Glucagon For Inj 1 Mg Vial) 1 mg SQ UD PRN; Protocol PRN Reason: Hypoglycemia Protocol Stop: 06/06/23 07:53 Glucose (Glucose 10 Tab/Tube) 4 - 8 tab PO UD PRN; Protocol PRN Reason: Hypoglycemia Treatment Stop: 06/06/23 07:53 Glucose (Glucose 40% Gel 15 Gm Tube) 15 - 30 gm PO UD PRN; Protocol PRN Reason: Hypoglycemia Protocol Stop: 06/06/23 07:53 Promethazine HCl 12.5 mg/ (Sodium Chloride) 50.5 mls @ 202 mls/hr IV Q6H PRN PRN Reason: Nausea And Vomiting Stop: 06/06/23 02:43 Insulin Aspart (Insulin Aspart Per Unit Charge) 0 units SC ACHS [facility] Stop: 06/06/23 08:14 Last Admin: 05/10/23 08:50 Dose: 5 units Insulin Glargine (Lantus Per Unit Charge) 12 units SQ DAILY [facility] Stop: 06/09/23 08:59 Lorazepam (Lorazepam 2 Mg/1 Ml Vial) 1 mg IV Q10M PRN PRN Reason: seizures Stop: 06/06/23 02:43 Miscellaneous (Carbohydrates For Hypoglycemia ) 15 - 30 gm PO UD PRN PRN Reason: Hypoglycemia Protocol Stop: 06/06/23 07:53 Miscellaneous Information (Pharmacy Glycemic Mgmt Consult) 1 each N/A UD PRN; Protocol PRN Reason: Consult Stop: 06/06/23 07:54 Phenytoin Sodium (Phenytoin Sodium Er 100 Mg Cap) 200 mg PO BID [facility] Stop: 06/06/23 08:59 Last Admin: 05/09/23 21:39 Dose: 200 mg Trimethoprim/Sulfamethoxazole (Sulfamethoxazole/Trimethoprim Ds 800/160mg Tab) 1 tab PO BID [facility] Stop: 05/15/23 08:59
[2023-05-10] MEDS: PHENYTOIN SODIUM ER 100 MG CAP PO SCH ×2 (09:22→20:36)
[2023-05-10] MEDS: ENOXAPARIN INJ 40 MG/0.4 ML SYR SQ SCH (09:23)
[2023-05-10] MEDS: LANTUS PER UNIT CHARGE SQ SCH (09:26)
[2023-05-10] MEDS: SULFAMETHOXAZOLE/TRIMETHOPRIM DS 800/160MG TAB PO SCH ×2 (10:49→20:40)
[2023-05-10] MEDS: NITROFURANTOIN MONOHYDRATE 100 MG CAP PO SCH (11:10)
--- NOTE | 2023-05-11 08:23 | Hospitalist Progress Note ---
Date of Service May 11, 2023 Assessment & Plan (1) Syncope and collapse: (2) Breakthrough seizure: (3) New onset type 2 diabetes mellitus: (4) Acute UTI: (5) Homelessness: (6) Food insecurity: (7) Infestation by bed bug: Plan Loss of consciousness surrounding a stressful blood draw situation in the office. Etiologies include but not limited to vasovagal syncope vs breakthrough seizure She has a H/O Posttraumatic seizure disorder and a subtherapeutic Dilantin level ? Medication compliance/missed doses -CT Head:No acute findings in the head/brain. No indication for MRI, EEG per neurology Dilantin regimen was simplified to 200mg BID, reducing her total dose by 60mg daily Recheck dilantin level in one week with follow-up with neurology as outpatient For repeat Dilantin levels that return subtherapeutic, plan to increase Dilantin to 200 mg a.m., 300 mg p.m. (discussed with neurology on 05/08/23) Plan to discharge once placement available DM II--New diagnosis HbA1C: 9.6 Continue insulin per protocol Monitor BGs certified breastfeeding educator consulted and educated patient on starting metformin at discharge transition Currently receiving insulin inpatient and meeting glycemic targets. Lifestyle changes were recommended including eliminating sugar-sweetened drinks, and diet modifications including more vegetables and less carbs. Plan to add metformin ER 500mg once daily (need to check insurance coverage for this or utilize $4 list option) and discharge with BSG meter and ways to monitor her BSG at home. She will need ophthalmology and podiatry referrals in outpatient setting. 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 Chronic lymphedema Venous Doppler from 04/11/23:Currently there is normal compressibility of the deep venous system from the common femoral vein through the proximal calf veins. No superficial venous thrombosis is identified. Will benefit from following lymphedema clinic as outpatient Possible head lice/bedbug infestation as per EMS S/P Permethrin application in ED ' This is evidence of her poor hygeine referenced by family above. Social issues Case management to help with discharge planning Will also ask psychiatry to ensure there are no obvious mental health issues that may be causing an obstacle for improved QOL and health. DVT Px: Lovenox SQ Code Status Full code Disposition Case management to help with discharge planning Leigh Johnson DO [facility] Hospitalist Admission and Anticipated Discharge Date Admission Date: May 07, 2023 Subjective 73 yo F with recent syncopal episode No issues today she is still speaking in run on sentences with flight of ideas waiting to figure out a safe disposition Review of Systems Review of Systems: All systems were reviewed and negative except as indicated on subjective above. Physical Exam Physical Exam: CONSTITUTIONAL: WNWD, vitals as above, generally well-appearing, NAD EYES: +strabismus noted, +bespectacled, normal conjunctivae, no scleral icterus ENT: external ear and nose normal, MMM NECK: trachea midline RESPIRATORY: clear to auscultation bilaterally, no crackles, rales or wheezes, normal respiratory effort CARDIOVASCULAR: regular rate and rhythm, S1 and 2 heard without murmurs, gallops or rubs, no JVD, no peripheral edema CHEST: inspection of chest was normal GASTROINTESTINAL: soft, nontender, ND, no guarding MUSCULOSKELETAL: strength 5/5 throughout, head is normocephalic and atraumatic SKIN: warm and dry NEUROLOGIC: CN 2-12 grossly intact, no sensory deficit, normal cognition, normal speech, no tremor PSYCHIATRIC: alert cooperative and oriented to person, place and time. Euthymic mood, makes good eye contact, language grossly intact, recent and remote memory grossly intact. Results & Data Results & Data Vital Signs (Past 12 Hours) Vital Signs Temp Pulse Resp BP Pulse Ox O2 Del Method 05/11/23 08:21 36.6 C 69 18 127/68 94 Room Air 05/10/23 23:00 36.6 C 62 18 109/67 95 Room Air Medications Administered Current Inpatient Medications Acetaminophen (Acetaminophen 325 Mg Tab) 650 mg PO Q4H PRN PRN Reason: Pain or Fever Stop: 06/06/23 02:43 Dextrose (Dextrose 50% 50 Ml Syringe) 25 - 50 ml IV UD PRN; Protocol PRN Reason: Hypoglycemia Protocol Stop: 06/06/23 07:53 Enoxaparin Sodium (Enoxaparin Inj 40 Mg/0.4 Ml Syr) 40 mg SQ QAM [facility] Stop: 06/06/23 08:59 Last Admin: 05/10/23 09:23 Dose: 40 mg Glucagon (Glucagon For Inj 1 Mg Vial) 1 mg SQ UD PRN; Protocol PRN Reason: Hypoglycemia Protocol Stop: 06/06/23 07:53 Glucose (Glucose 10 Tab/Tube) 4 - 8 tab PO UD PRN; Protocol PRN Reason: Hypoglycemia Treatment Stop: 06/06/23 07:53 Glucose (Glucose 40% Gel 15 Gm Tube) 15 - 30 gm PO UD PRN; Protocol PRN Reason: Hypoglycemia Protocol Stop: 06/06/23 07:53 Insulin Aspart (Insulin Aspart Per Unit Charge) 0 units SC ACHS [facility] Stop: 06/06/23 08:14 Last Admin: 05/10/23 20:36 Dose: Not Given Insulin Glargine (Lantus Per Unit Charge) 12 units SQ DAILY [facility] Stop: 06/09/23 08:59 Last Admin: 05/10/23 09:26 Dose: 12 units Lorazepam (Lorazepam 2 Mg/1 Ml Vial) 1 mg IV Q10M PRN PRN Reason: seizures Stop: 06/06/23 02:43 Miscellaneous (Carbohydrates For Hypoglycemia ) 15 - 30 gm PO UD PRN PRN Reason: Hypoglycemia Protocol Stop: 06/06/23 07:53 Miscellaneous Information (Pharmacy Glycemic Mgmt Consult) 1 each N/A UD PRN; Protocol PRN Reason: Consult Stop: 06/06/23 07:54 Phenytoin Sodium (Phenytoin Sodium Er 100 Mg Cap) 200 mg PO BID [facility] Stop: 06/06/23 08:59 Last Admin: 05/10/23 20:36 Dose: 200 mg Trimethoprim/Sulfamethoxazole (Sulfamethoxazole/Trimethoprim Ds 800/160mg Tab) 1 tab PO BID [facility] Stop: 05/15/23 08:59 Last Admin: 05/10/23 20:40 Dose: 1 tab
[2023-05-11] MEDS: INSULIN ASPART PER UNIT CHARGE SC SCH ×4 (09:03→21:06)
[2023-05-11] MEDS: LANTUS PER UNIT CHARGE SQ SCH (10:01)
[2023-05-11] MEDS: SULFAMETHOXAZOLE/TRIMETHOPRIM DS 800/160MG TAB PO SCH ×2 (10:02→21:07)
[2023-05-11] MEDS: PHENYTOIN SODIUM ER 100 MG CAP PO SCH ×2 (10:02→21:06)
[2023-05-11] MEDS: ENOXAPARIN INJ 40 MG/0.4 ML SYR SQ SCH (10:02)
--- NOTE | 2023-05-11 15:04 | Psychiatric Consultation ---
Date of Consultation May 11, 2023 Impression / Recommendations Impression Diagnostically consistent with possible history of hoarding based on family collateral and possible component of anxiety versus paranoia related to concerns about old neighbors stealing from her and potential for local crime if she went out shopping alone at night. However, these concerns could be reality-based and no evidence for bizarre delusions, psychosis, dima, depression nor inability to meet her basic needs. It's difficult to fully assess her safety to live on her own in the hospital setting as certainly possible she knows what to tell us as providers regarding how she meets her basic needs but unclear how well she follows through with this while on her own. Certainly possible she may have some type of fixed delusional disorder or schizoid personality disorder though these would not be criteria for inpatient psychiatric hospitalization nor reason to prevent her from living on her own should she desire this. Overall she shows decision making capacity to discuss her housing preferences and goals and no current reason to prevent her from living on her should this be what she chooses to do. (1) Encounter for assessment of decision-making capacity: (2) Homelessness: (3) Food insecurity: (4) Breakthrough seizure: Plan -If family has concerns in the future in the outpatient setting would encourage them to involve [facility] who could do a home visit and likely learn a lot more information about how she functions on her own -If desired trial of seroquel 25mg HS could be considered in the future if paranoia ever worsens; however at this time I would not recommend starting any psychiatric medication as liklihhod of side effects and risks felt to outweigh any potential benefits at this point Psych History Identifying Data 73 yo woman currently homeless with history of seizures admitted for breakthrough seizure, also found to have possible lice/bedbug infection as well as chronic lymphedema. Psychiatry consulted for recommendations regarding housing/disposition. Chief Complaint "I wondered why you all were involved, I've never had any psych problems". History of Present Illness Merary was admitted for breakthrough seizure and her brother expressed concern to case management about her ability to make "sound decisions for herself" per CM note on 05/10/23. CM note reflects brother's collateral that Merary has burned bridges with family and has a history of hoarding, illogical thought processes, unkempt appearance and poor hygiene. In meeting with Merary she is tangential and talkative but easy to interrupt, not pressured and able to tolerate a full assessment. She denies any history of psychiatric conditions, nor hospitalizations. States she has largely had housing issues in the past due to poor management at the apartment she lived in, concerns about neighbors stealing things or due to physical issues limiting her ability to ambulate. She denies any history of depression, dima, psychosis nor hoarding. In discussing reported history of hoarding she explains this was due to inheriting many of her mother's items and not having enough storage space. States she didn't leave her apartment for reported ~2 years at one point in the past due to concerns about neighbors in the building stealing things and not wanting to be "out at night" as crime is increasing even in [place] and she knows of other older people having their groceries stolen while out and about. States her hair got matted and hygiene was impacted due to phsyical injury in May which limited her ability to shower so "my hair became not a priority and then it got so bad I couldn't get a brush through it, not even a beauty shop lady could have done much with it at that point". Speaks to how she meets all her basic needs. Feels safe when she is on her own. Has been looking into options for housing, hopefully she may be able to find funding for a personal penitentiary, thinks there may be other resources to help with this if she doesn't have enough personal fiances. Allergies Allergy/AdvReac Type Severity Reaction Status Date / Time Penicillins AdvReac Sweaty Verified 05/06/23 20:55 Home Medications Medication Instructions Recorded Confirmed Type phenytoin sodium extended 100 mg 100 mg PO QID 05/06/23 05/06/23 History capsule (Dilantin Extended) phenytoin sodium extended 30 mg 30 mg PO BID 05/06/23 05/06/23 History capsule (Dilantin) Patient History Medical History (Updated 05/11/23 @ 17:37 by Esther Coronado MD) Hoarding behavior New onset type 2 diabetes mellitus Social History Smoking Status: Never smoker Hx Alcohol Use: No Hx Substance Use: No Preferred Language: Tajik Communication Ability: Effective Recruiting Intern Required: No Beliefs That Will Affect Care: None Current Living Situation: Family Current Living Situation Comment: unknown where will be staying Other Information That Helps Us Care for You: No Feels Safe at Home: Yes Safety Concerns: Feels Safe At This Time Assistive Devices: Cane Assistive Devices Comment: cane Physical Exam Psychiatric: Orientation: alert and oriented x 3 Apperance: appropriately dressed, appropriately groomed and + disheveled (hair noted to be matted in the back) Eye Contact: good eye contact Motor Behavior: no abnormal motor movements Speech: normal rate/rhythm/volume of speech (expansive, but easy to interrupt ) Affect: euthymic affect Mood: no depressed mood and no anxious mood (though does report some concerns about crime at night) Thought Process: + tangential thought process Thought Content: reality based without delusions Suicidal Thoughts: denies suicidal thoughts Homicidal Thoughts: denies zach icidal thoughts Hallucinations: no auditory hallucinations and no visual hallucinations Cognition: recent memory grossly intact, remote memory grossly intact, attention grossly intact and language grossly intact Estimated Intelligence: consistent with education level Insight: + limited insight Judgment: + limited judgement Vital Signs (Past 24 Hours): Last Vital Signs Temp 36.5 C 05/11/23 12:01 Pulse 69 05/11/23 12:01 Resp 18 05/11/23 12:01 BP 119/69 05/11/23 12:01 Pulse Ox 94 05/11/23 12:01 O2 Del Method Room Air 05/11/23 12:01 Review of Systems All systems reviewed & are unremarkable except as noted in HPI & below Results & Data (PSY) Medications Administered Enoxaparin Sodium (Enoxaparin Inj 40 Mg/0.4 Ml Syr) 40 mg SQ QAM [facility] Stop: 06/06/23 08:59 Last Admin: 05/11/23 10:02 Dose: 40 mg Documented By: Admin: 05/10/23 09:23 Dose: 40 mg Documented By: Admin: 05/09/23 08:54 Dose: 40 mg Documented By: Admin: 05/08/23 08:59 Dose: 40 mg Documented By: Admin: 05/07/23 10:36 Dose: 40 mg Documented By: VERONICA Insulin Aspart (Insulin Aspart Per Unit Charge) 0 units SC ACHS [facility] Stop: 06/06/23 08:14 Last Admin: 05/11/23 12:18 Dose: 4 units Documented By: SHARON Co-signed By: [facility] Admin: 05/11/23 09:03 Dose: 5 units Documented By: SHARON Co-signed By: [facility] Admin: 05/10/23 20:36 Dose: Not Given Documented By: Admin: 05/10/23 17:38 Dose: 7 units Documented By: SHARON Co-signed By: [facility] Admin: 05/10/23 12:26 Dose: 4 units Documented By: SHARON Co-signed By: [facility] Admin: 05/10/23 08:50 Dose: 5 units Documented By: SHARON Co-signed By: [facility] Admin: 05/09/23 21:20 Dose: 1 units Documented By: ROSITA Co-signed By: SAAD Admin: 05/09/23 17:19 Dose: 6 units Documented By: YA Co-signed By: [facility] Admin: 05/09/23 12:38 Dose: 9 units Documented By: YA Co-signed By: [facility] Admin: 05/09/23 08:45 Dose: 6 units Documented By: AANeil Co-signed By: [facility] Admin: 05/08/23 20:20 Dose: Not Given Documented By: Admin: 05/08/23 18:10 Dose: 5 units Documented By: MPC Co-signed By: ALA Admin: 05/08/23 13:34 Dose: 4 units Documented By: MPC Co-signed By: ALA Admin: 05/08/23 08:53 Dose: 5 units Documented By: MPC Co-signed By: RRR Admin: 05/07/23 20:22 Dose: Not Given Documented By: Admin: 05/07/23 17:29 Dose: 9 units Documented By: VERONICA Co-signed By: BYRON Admin: 05/07/23 12:30 Dose: 6 units Documented By: VERONICA Co-signed By: BYRON Admin: 05/07/23 09:23 Dose: 6 units Documented By: VERONICA Co-signed By: BYRON Insulin Glargine (Lantus Per Unit Charge) 12 units SQ DAILY [facility] Stop: 06/09/23 08:59 Last Admin: 05/11/23 10:01 Dose: 12 units Documented By: SHARON Co-signed By: [facility] Admin: 05/10/23 09:26 Dose: 12 units Documented By: SHARON Co-signed By: MARIA ELENA Phenytoin Sodium (Phenytoin Sodium Er 100 Mg Cap) 200 mg PO BID [facility] Stop: 06/06/23 08:59 Last Admin: 05/11/23 10:02 Dose: 200 mg Documented By: Admin: 05/10/23 20:36 Dose: 200 mg Documented By: Admin: 05/10/23 09:22 Dose: 200 mg Documented By: Admin: 05/09/23 21:39 Dose: 200 mg Documented By: Admin: 05/09/23 08:54 Dose: 200 mg Documented By: Admin: 05/08/23 21:02 Dose: 200 mg Documented By: Admin: 05/08/23 08:58 Dose: 200 mg Documented By: Admin: 05/07/23 20:34 Dose: 200 mg Documented By: Admin: 05/07/23 10:36 Dose: 200 mg Documented By: VERONICA Trimethoprim/Sulfamethoxazole (Sulfamethoxazole/Trimethoprim Ds 800/160mg Tab) 1 tab PO BID [facility] Stop: 05/15/23 08:59 Last Admin: 05/11/23 10:02 Dose: 1 tab Documented By: Admin: 05/10/23 20:40 Dose: 1 tab Documented By: Admin: 05/10/23 10:49 Dose: 1 tab Documented By: SHARON Coding Level of Care Code 10816 IN/OBS CONSULT LVL 4,60M Diagnoses Encounter for assessment of decision-making capacity Z01.89 Homelessness Z59.00 Food insecurity Z59.41 Breakthrough seizure G40.919 Time Spent (min) 65
[2023-05-12] MEDS: LANTUS PER UNIT CHARGE SQ SCH (08:19)
[2023-05-12] MEDS: INSULIN ASPART PER UNIT CHARGE SC SCH ×4 (08:20→21:19)
[2023-05-12] MEDS: SULFAMETHOXAZOLE/TRIMETHOPRIM DS 800/160MG TAB PO SCH ×2 (11:00→21:19)
[2023-05-12] MEDS: PHENYTOIN SODIUM ER 100 MG CAP PO SCH ×2 (11:00→21:19)
[2023-05-12] MEDS: ENOXAPARIN INJ 40 MG/0.4 ML SYR SQ SCH (11:00)
--- NOTE | 2023-05-12 14:31 | Pharmacy Report ---
Pharmacy Glycemic Short Note 2 - Date of Service May 12, 2023 - Glycemic Short BSG Results (Last 24 hours): 05/11/23 05/11/23 05/12/23 16:46 20:25 07:52 POC Glucose 96 163 H 87 05/12/23 11:50 POC Glucose 86 OUTPATIENT ANTIDIABETIC REGIMEN: * n/a * A1c 9.6% on admission ASSESSMENT: 05/12/22 * Patient received a total of 29 units of insulin yesterday, of which 12 units were basal * Fasting 87 mg/dL this AM, lower end of goal therefore will scale back ~25% * Loosened CR at lunch time, as BSG values remain on lower end of goal 05/09/23 * Patient's BSGs yesterday were [phone] mg/dL. Patient received 29 units (15 units of Lantus + 14 units of Novolog). * Fasting today is 123 mg/dL. * Continue current regimen as BSGs well controlled. BACKGROUND * 73 year old admitted with breakthrough seizure. Pharmacy consulted for glycemic management. No medications listed on home medication list for diabetes. A1c elevated on admission. * Will be conservative and plan to start basal insulin ~0.2 units/kg daily (adj bw) and novolog stress 1/2 PLAN FOR INPATIENT GLYCEMIC CONTROL: * Hold outpatient oral diabetes medications * Basal insulin * Lantus 9 units daily * Bolus insulin * NovoLog per scale ACHS or Q6hrs while NPO * Goal Range: Low 110 mg/dL - High 140 mg/dL * Correction Factor: 25 mg/dL/unit * Nutritional / Prandial insulin per carb ratio of 1 unit per 15 grams CHO consumed
--- NOTE | 2023-05-12 16:33 | Hospitalist Progress Note ---
Date of Service May 12, 2023 Assessment & Plan (1) Syncope and collapse: (2) Breakthrough seizure: (3) New onset type 2 diabetes mellitus: (4) Acute UTI: (5) Homelessness: (6) Food insecurity: (7) Infestation by bed bug: Plan Syncope versus breakthrough seizure- loss of consciousness surrounding a stressful blood draw situation in the office. Etiologies include but not limited to vasovagal syncope vs breakthrough seizure She has a H/O Posttraumatic seizure disorder and a subtherapeutic Dilantin level ? Medication compliance/missed doses -CT Head:No acute findings in the head/brain. No indication for MRI, EEG per neurology Dilantin regimen was simplified to 200mg BID, reducing her total dose by 60mg daily Recheck dilantin level in one week 05/14, if still subtherapeutic increase Dilantin to 200 mg a.m., 300 mg p.m. (discussed with neurology on 05/08/23) Follow-up with neuro as outpatient DM II--New diagnosis; HbA1C: 9.6 - Continue insulin per protocol - park guide consulted and educated patient on starting metformin at discharge transition - Lifestyle changes were recommended including eliminating sugar-sweetened drinks, and diet modifications including more vegetables and less carbs. - Plan to add metformin ER 500mg once daily (need to check insurance coverage for this or utilize $4 list option) and discharge with BSG meter and ways to monitor her BSG at home. - She will need ophthalmology and podiatry referrals in outpatient setting. UTI 2/2 staph lugdenensis - Empirically on Azactam>> transition to nitrofurantoin>>Septra. Blood cultures negative Chronic lymphedema - Venous Doppler from 04/11/23:Currently there is normal compressibility of the deep venous system from the common femoral vein through the proximal calf veins. No superficial venous thrombosis is identified. - Will benefit from following lymphedema clinic as outpatient Possible head lice/bedbug infestation as per EMS - S/P Permethrin application in ED. This is evidence of her poor hygeine referenced by family above. Social issues - Case management to help with discharge planning -Seen by psych-recommendations noted-'overall she shows disseminating capacity to discuss her housing preferences and goals and no current reason to prevent her from living on her own should this be what she chooses to do'. Hold off on Seroquel for now DVT prophylaxis: Lovenox SQ Disposition- Case management to help with discharge planning Admission and Anticipated Discharge Date Admission Date: May 07, 2023 Subjective Patient was seen and examined at bedside. She feels fine. She denies any ongoing issues. States her left IV site is hurting and was asking if it can come out. No fever, chills, chest pain, shortness of breath, nausea vomiting Review of Systems Review of Systems: All systems reviewed & are unremarkable except as noted in Subjective Physical Exam Physical Exam: General: Sitting comfortably in bed, not in distress, on room air HEENT: Strabismus, MMM Chest: Clear breath sounds bilaterally, no wheezes or crackles CVS: Regular rate and rhythm, normal heart sounds, no murmur Abdomen: Soft, non tender, not distended, normal bowel sounds Neuro: Awake, alert, oriented, conversing well, non focal Extremities: No cyanosis, clubbing, chronic LE lymphedema Results & Data Results & Data Vital Signs (Past 12 Hours) Vital Signs Temp Pulse Resp BP BP Pulse Ox O2 Del Method 05/12/23 14:36 36.7 C 64 16 119/72 95 Room Air 05/12/23 08:11 36.3 C L 64 18 120/65 94 Room Air Medications Administered Current Inpatient Medications Acetaminophen (Acetaminophen 325 Mg Tab) 650 mg PO Q4H PRN PRN Reason: Pain or Fever Stop: 06/06/23 02:43 Dextrose (Dextrose 50% 50 Ml Syringe) 25 - 50 ml IV UD PRN; Protocol PRN Reason: Hypoglycemia Protocol Stop: 06/06/23 07:53 Enoxaparin Sodium (Enoxaparin Inj 40 Mg/0.4 Ml Syr) 40 mg SQ QAM [facility] Stop: 06/06/23 08:59 Last Admin: 05/12/23 11:00 Dose: 40 mg Glucagon (Glucagon For Inj 1 Mg Vial) 1 mg SQ UD PRN; Protocol PRN Reason: Hypoglycemia Protocol Stop: 06/06/23 07:53 Glucose (Glucose 10 Tab/Tube) 4 - 8 tab PO UD PRN; Protocol PRN Reason: Hypoglycemia Treatment Stop: 06/06/23 07:53 Glucose (Glucose 40% Gel 15 Gm Tube) 15 - 30 gm PO UD PRN; Protocol PRN Reason: Hypoglycemia Protocol Stop: 06/06/23 07:53 Insulin Aspart (Insulin Aspart Per Unit Charge) 0 units SC ACHS [facility] Stop: 06/06/23 08:14 Last Admin: 05/12/23 12:03 Dose: 2 units Insulin Glargine (Lantus Per Unit Charge) 9 units SQ DAILY [facility] Stop: 06/11/23 08:59 Last Admin: 05/12/23 08:19 Dose: 9 units Lorazepam (Lorazepam 2 Mg/1 Ml Vial) 1 mg IV Q10M PRN PRN Reason: seizures Stop: 06/06/23 02:43 Miscellaneous (Carbohydrates For Hypoglycemia ) 15 - 30 gm PO UD PRN PRN Reason: Hypoglycemia Protocol Stop: 06/06/23 07:53 Miscellaneous Information (Pharmacy Glycemic Mgmt Consult) 1 each N/A UD PRN; Protocol PRN Reason: Consult Stop: 06/06/23 07:54 Phenytoin Sodium (Phenytoin Sodium Er 100 Mg Cap) 200 mg PO BID [facility] Stop: 06/06/23 08:59 Last Admin: 05/12/23 11:00 Dose: 200 mg Trimethoprim/Sulfamethoxazole (Sulfamethoxazole/Trimethoprim Ds 800/160mg Tab) 1 tab PO BID [facility] Stop: 05/15/23 08:59 Last Admin: 05/12/23 11:00 Dose: 1 tab
[2023-05-13] MEDS: PHENYTOIN SODIUM ER 100 MG CAP PO SCH ×2 (08:32→20:53)
[2023-05-13] MEDS: SULFAMETHOXAZOLE/TRIMETHOPRIM DS 800/160MG TAB PO SCH ×2 (08:32→20:53)
[2023-05-13] MEDS: ENOXAPARIN INJ 40 MG/0.4 ML SYR SQ SCH (08:32)
[2023-05-13] MEDS: INSULIN ASPART PER UNIT CHARGE SC SCH ×4 (08:43→21:31)
[2023-05-13] MEDS: LANTUS PER UNIT CHARGE SQ SCH (08:43)
--- NOTE | 2023-05-13 14:18 | Hospitalist Progress Note ---
Date of Service May 13, 2023 Assessment & Plan (1) Syncope and collapse: (2) Breakthrough seizure: (3) New onset type 2 diabetes mellitus: (4) Homelessness: (5) Food insecurity: (6) Infestation by bed bug: Plan Syncope versus breakthrough seizure- loss of consciousness surrounding a stressful blood draw situation in the office. Etiologies include but not limited to vasovagal syncope vs breakthrough seizure She has a H/O Posttraumatic seizure disorder and a subtherapeutic Dilantin level ? Medication compliance/missed doses -CT Head:No acute findings in the head/brain. No indication for MRI, EEG per neurology Dilantin regimen was simplified to 200mg BID, reducing her total dose by 60mg daily Recheck dilantin level in one week 05/14, if still subtherapeutic increase Dilantin to 200 mg a.m., 300 mg p.m. (discussed with neurology on 05/08/23) Follow-up with neuro as outpatient DM II--New diagnosis; HbA1C: 9.6 - Continue insulin per protocol - nurse educator consulted and educated patient on starting metformin at discharge transition - Lifestyle changes were recommended including eliminating sugar-sweetened drinks, and diet modifications including more vegetables and less carbs. - Plan to add metformin ER 500mg once daily (need to check insurance coverage for this or utilize $4 list option) and discharge with BSG meter and ways to monitor her BSG at home. - She will need ophthalmology and podiatry referrals in outpatient setting. UTI 2/2 staph lugdenensis - Empirically on Azactam>> transition to nitrofurantoin>>Septra. Blood cultures negative Chronic lymphedema - Venous Doppler from 04/11/23:Currently there is normal compressibility of the deep venous system from the common femoral vein through the proximal calf veins. No superficial venous thrombosis is identified. - Will benefit from following lymphedema clinic as outpatient Possible head lice/bedbug infestation as per EMS - S/P Permethrin application in ED. This is evidence of her poor hygeine referenced by family above. Social issues - Case management to help with discharge planning -Seen by psych-recommendations noted-'overall she shows disseminating capacity to discuss her housing preferences and goals and no current reason to prevent her from living on her own should this be what she chooses to do'. Hold off on Seroquel for now DVT prophylaxis: Lovenox SQ Disposition- Case management following to help with discharge planning. She is medically stable for discharge. Admission and Anticipated Discharge Date Admission Date: May 07, 2023 Subjective Patient was seen and examined at bedside. Denies any new issues. No fever, chills, chest pain or shortness of breath nausea or vomiting. Normal appetite and oral intake. Review of Systems Review of Systems: All systems reviewed & are unremarkable except as noted in Subjective Physical Exam Physical Exam: General: Lying comfortably in bed, not in distress, on room air HEENT: Strabismus, MMM Chest: Clear breath sounds bilaterally, no wheezes or crackles CVS: Regular rate and rhythm, normal heart sounds, no murmur Abdomen: Soft, non tender, not distended, normal bowel sounds Neuro: Awake, alert, oriented, conversing well, non focal Extremities: No cyanosis, clubbing, chronic LE lymphedema Results & Data Results & Data Vital Signs (Past 12 Hours) Vital Signs Temp Pulse Resp BP Pulse Ox O2 Del Method 05/13/23 08:00 Room Air 05/13/23 08:01 36.5 C 61 18 110/67 95 Room Air Medications Administered Current Inpatient Medications Acetaminophen (Acetaminophen 325 Mg Tab) 650 mg PO Q4H PRN PRN Reason: Pain or Fever Stop: 06/06/23 02:43 Dextrose (Dextrose 50% 50 Ml Syringe) 25 - 50 ml IV UD PRN; Protocol PRN Reason: Hypoglycemia Protocol Stop: 06/06/23 07:53 Enoxaparin Sodium (Enoxaparin Inj 40 Mg/0.4 Ml Syr) 40 mg SQ QAM [facility] Stop: 06/06/23 08:59 Last Admin: 05/13/23 08:32 Dose: 40 mg Glucagon (Glucagon For Inj 1 Mg Vial) 1 mg SQ UD PRN; Protocol PRN Reason: Hypoglycemia Protocol Stop: 06/06/23 07:53 Glucose (Glucose 10 Tab/Tube) 4 - 8 tab PO UD PRN; Protocol PRN Reason: Hypoglycemia Treatment Stop: 06/06/23 07:53 Glucose (Glucose 40% Gel 15 Gm Tube) 15 - 30 gm PO UD PRN; Protocol PRN Reason: Hypoglycemia Protocol Stop: 06/06/23 07:53 Insulin Aspart (Insulin Aspart Per Unit Charge) 0 units SC ACHS [facility] Stop: 06/06/23 08:14 Last Admin: 05/13/23 12:16 Dose: 2 units Insulin Glargine (Lantus Per Unit Charge) 9 units SQ DAILY [facility] Stop: 06/11/23 08:59 Last Admin: 05/13/23 08:43 Dose: 9 units Lorazepam (Lorazepam 2 Mg/1 Ml Vial) 1 mg IV Q10M PRN PRN Reason: seizures Stop: 06/06/23 02:43 Miscellaneous (Carbohydrates For Hypoglycemia ) 15 - 30 gm PO UD PRN PRN Reason: Hypoglycemia Protocol Stop: 06/06/23 07:53 Miscellaneous Information (Pharmacy Glycemic Mgmt Consult) 1 each N/A UD PRN; Protocol PRN Reason: Consult Stop: 06/06/23 07:54 Phenytoin Sodium (Phenytoin Sodium Er 100 Mg Cap) 200 mg PO BID [facility] Stop: 06/06/23 08:59 Last Admin: 05/13/23 08:32 Dose: 200 mg Trimethoprim/Sulfamethoxazole (Sulfamethoxazole/Trimethoprim Ds 800/160mg Tab) 1 tab PO BID [facility] Stop: 05/15/23 08:59 Last Admin: 05/13/23 08:32 Dose: 1 tab
[2023-05-14 07:06] LABS: Hematocrit (blood only) 42.5 % (37.0-47.0); Hemoglobin 14.5 g/dl (12.0-16.0); Mean Corpuscular Hemoglobin 29.5 pg (25.0-34.0); Mean Corpuscular Hgb Conc 34.1 g/dL (32.0-36.0); Mean Corpuscular Volume 86.4 fL (80.0-100.0); Mean Platelet Volume 10.1 fL (9.4-12.4); Platelet Count 235 K/uL (130-400); RDW Coefficient of Variation 14.1 % (11.5-14.5); RDW Standard Deviation 44.3 fL (36.4-46.3); Red Blood Count 4.92 M/uL (4.20-5.40); White Blood Count 6.05 K/ul (4.8-10.8)
[2023-05-14 07:40] LABS: BUN Creatinine Ratio 18.8 (10-20); Creatinine Clr Calc Pharmacy 68.9 ml/min; Est GFR (African American) 68.5 ml/min; Est GFR (Non-African American) 59.1 ml/min; Magnesium 2.1 mg/dl (1.7-2.4); Phosphorus 3.9 mg/dl (2.5-4.9); Potassium 4.1 mmol/L (3.5-5.1)
--- NOTE | 2023-05-14 07:48 | Pharmacy Report ---
Pharmacy Glycemic Short Note 2 - Date of Service May 14, 2023 - Glycemic Short BSG Results (Last 24 hours): 05/13/23 05/13/23 05/13/23 07:58 11:52 16:34 Glucose POC Glucose 105 H 127 H 155 H 05/13/23 05/14/23 05/14/23 20:51 06:12 07:36 Glucose 119 H POC Glucose 149 H 123 H OUTPATIENT ANTIDIABETIC REGIMEN: * n/a * A1c 9.6% on admission ASSESSMENT: 05/14/23 * BSGs reasonably well-controlled yesterday, ranging 105-155 mg/dL w/ fasting BSG of 123 mg/dL this morning * Received 18 units of insulin (50/50 basal/bolus split) * Will increase basal insulin today ~10% * Patient will require initiation of therapy upon discharge * Discussed with CDE and hospitalist - metformin to be started this evening 05/12/23 * Patient received a total of 29 units of insulin yesterday, of which 12 units were basal * Fasting 87 mg/dL this AM, lower end of goal therefore will scale back ~25% * Loosened CR at lunch time, as BSG values remain on lower end of goal 05/09/23 * Patient's BSGs yesterday were [phone] mg/dL. Patient received 29 units (15 units of Lantus + 14 units of Novolog). * Fasting today is 123 mg/dL. * Continue current regimen as BSGs well controlled. BACKGROUND * 73 year old admitted with breakthrough seizure. Pharmacy consulted for glycemic management. No medications listed on home medication list for diabetes. A1c elevated on admission. * Will be conservative and plan to start basal insulin ~0.2 units/kg daily (adj bw) and novolog stress 1/2 PLAN FOR INPATIENT GLYCEMIC CONTROL: * Metformin ER 500 mg PO daily w/ dinner * Basal insulin * Lantus 10 units daily * Bolus insulin * NovoLog per scale ACHS or Q6hrs while NPO * Goal Range: Low 110 mg/dL - High 140 mg/dL * Correction Factor: 35 mg/dL/unit * Nutritional / Prandial insulin per carb ratio of 1 unit per 15 grams CHO consumed
[2023-05-14] MEDS ORDERED: LANTUS PER UNIT CHARGE SQ SCH (09:00)
[2023-05-14] MEDS: PHENYTOIN SODIUM ER 100 MG CAP PO SCH ×2 (09:07→20:21)
[2023-05-14] MEDS: ENOXAPARIN INJ 40 MG/0.4 ML SYR SQ SCH (09:07)
[2023-05-14] MEDS: SULFAMETHOXAZOLE/TRIMETHOPRIM DS 800/160MG TAB PO SCH ×2 (09:08→20:21)
[2023-05-14] MEDS: INSULIN ASPART PER UNIT CHARGE SC SCH ×4 (09:24→20:23)
--- NOTE | 2023-05-14 15:12 | Hospitalist Progress Note ---
Date of Service May 14, 2023 Assessment & Plan (1) Syncope and collapse: (2) Breakthrough seizure: (3) New onset type 2 diabetes mellitus: (4) Homelessness: (5) Food insecurity: (6) Infestation by bed bug: Plan Syncope versus breakthrough seizure- loss of consciousness surrounding a stressful blood draw situation in the office. Etiologies include but not limited to vasovagal syncope vs breakthrough seizure She has a H/O Posttraumatic seizure disorder and a subtherapeutic Dilantin level ? Medication compliance/missed doses -CT Head:No acute findings in the head/brain. No indication for MRI, EEG per neurology Dilantin regimen was simplified to 200mg BID, reducing her total dose by 60mg daily Repeat dilantin level 05/14 pending, if still subtherapeutic--- plan to increase Dilantin to 200 mg a.m., 300 mg p.m. (discussed with neurology on 05/08/23) Follow-up with neuro as outpatient DM II--New diagnosis; HbA1C: 9.6 - Continue insulin per protocol. Metformin added after discussion with tobacco prevention health educator and pharmacy - Lifestyle changes were recommended including eliminating sugar-sweetened drinks, and diet modifications including more vegetables and less carbs. -For metformin ER 500mg (need to check insurance coverage for this or utilize $4 list option) and discharge with BSG meter and ways to monitor her BSG at home. - She will need ophthalmology and podiatry referrals in outpatient setting. UTI 2/2 staph lugdenensis - Empirically on Azactam>> transition to nitrofurantoin>>Septra. Blood cultures negative Chronic lymphedema - Venous Doppler from 04/11/23:Currently there is normal compressibility of the deep venous system from the common femoral vein through the proximal calf veins. No superficial venous thrombosis is identified. - Will benefit from following lymphedema clinic as outpatient Possible head lice/bedbug infestation as per EMS - S/P Permethrin application in ED. This is evidence of her poor hygeine referenced by family above. Social issues - Case management to help with discharge planning -Seen by psych-recommendations noted-'overall she shows disseminating capacity to discuss her housing preferences and goals and no current reason to prevent her from living on her own should this be what she chooses to do'. Hold off on Seroquel for now DVT prophylaxis: Lovenox SQ Disposition- Case management following to help with discharge planning. She is medically stable for discharge. Admission and Anticipated Discharge Date Admission Date: May 07, 2023 Subjective Patient was seen and examined at bedside. No new issues. No fever, chills, chest pain or shortness of breath nausea or vomiting. She was wondering if she could get her clothes laundried prior to discharge. Review of Systems Review of Systems: All systems reviewed & are unremarkable except as noted in Subjective Physical Exam Physical Exam: General: Lying comfortably in bed, not in distress, on room air HEENT: Strabismus, MMM Chest: Clear breath sounds bilaterally, no wheezes or crackles CVS: Regular rate and rhythm, normal heart sounds, no murmur Abdomen: Soft, non tender, not distended, normal bowel sounds Neuro: Awake, alert, oriented, conversing well, non focal Extremities: No cyanosis, clubbing, chronic LE lymphedema Results & Data Results & Data Vital Signs (Past 12 Hours) Vital Signs Temp Pulse Resp BP Pulse Ox O2 Del Method 05/14/23 14:43 36.7 C 62 17 125/71 97 Room Air 05/14/23 07:35 36.5 C 60 18 126/69 94 Room Air Laboratory Results Short CBC 05/14/23 Range/Units 06:12 WBC 6.05 (4.8-10.8) K/ul Hgb 14.5 (12.0-16.0) g/dl Hct 42.5 (37.0-47.0) % Plt Count 235 (130-400) K/uL BMP 05/14/23 06:12 Sodium 137 Potassium 4.1 Chloride 103 Carbon Dioxide 26 BUN 18 Creatinine 0.96 Glucose 119 H Calcium 9.0 Medications Administered Current Inpatient Medications Acetaminophen (Acetaminophen 325 Mg Tab) 650 mg PO Q4H PRN PRN Reason: Pain or Fever Stop: 06/06/23 02:43 Dextrose (Dextrose 50% 50 Ml Syringe) 25 - 50 ml IV UD PRN; Protocol PRN Reason: Hypoglycemia Protocol Stop: 06/06/23 07:53 Enoxaparin Sodium (Enoxaparin Inj 40 Mg/0.4 Ml Syr) 40 mg SQ QAM [facility] Stop: 06/06/23 08:59 Last Admin: 05/14/23 09:07 Dose: 40 mg Glucagon (Glucagon For Inj 1 Mg Vial) 1 mg SQ UD PRN; Protocol PRN Reason: Hypoglycemia Protocol Stop: 06/06/23 07:53 Glucose (Glucose 10 Tab/Tube) 4 - 8 tab PO UD PRN; Protocol PRN Reason: Hypoglycemia Treatment Stop: 06/06/23 07:53 Glucose (Glucose 40% Gel 15 Gm Tube) 15 - 30 gm PO UD PRN; Protocol PRN Reason: Hypoglycemia Protocol Stop: 06/06/23 07:53 Insulin Aspart (Insulin Aspart Per Unit Charge) 0 units SC ACHS [facility] Stop: 06/06/23 08:14 Last Admin: 05/14/23 12:49 Dose: 4 units Insulin Glargine (Lantus Per Unit Charge) 10 units SQ DAILY [facility] Stop: 06/11/23 08:59 Last Admin: 05/14/23 09:25 Dose: 10 units Lorazepam (Lorazepam 2 Mg/1 Ml Vial) 1 mg IV Q10M PRN PRN Reason: seizures Stop: 06/06/23 02:43 Metformin HCl (Metformin Hcl Er 500 Mg Tabcr) 500 mg PO DAILY@1700 [facility] Stop: 06/13/23 16:59 Miscellaneous (Carbohydrates For Hypoglycemia ) 15 - 30 gm PO UD PRN PRN Reason: Hypoglycemia Protocol Stop: 06/06/23 07:53 Miscellaneous Information (Pharmacy Glycemic Mgmt Consult) 1 each N/A UD PRN; Protocol PRN Reason: Consult Stop: 06/06/23 07:54 Phenytoin Sodium (Phenytoin Sodium Er 100 Mg Cap) 200 mg PO BID [facility] Stop: 06/06/23 08:59 Last Admin: 05/14/23 09:07 Dose: 200 mg Trimethoprim/Sulfamethoxazole (Sulfamethoxazole/Trimethoprim Ds 800/160mg Tab) 1 tab PO BID [facility] Stop: 05/15/23 08:59 Last Admin: 05/14/23 09:08 Dose: 1 tab
[2023-05-14] MEDS ORDERED: metFORMIN HCL ER 500 MG TABCR PO SCH ×2 (17:00→21:00)
[2023-05-14] MEDS: metFORMIN HCL ER 500 MG TABCR PO SCH (17:33)
[2023-05-15] MEDS: PHENYTOIN SODIUM ER 100 MG CAP PO SCH ×2 (09:38→21:40)
[2023-05-15] MEDS: INSULIN ASPART PER UNIT CHARGE SC SCH ×4 (09:38→20:58)
[2023-05-15] MEDS: ENOXAPARIN INJ 40 MG/0.4 ML SYR SQ SCH (09:39)
[2023-05-15] MEDS: LANTUS PER UNIT CHARGE SQ SCH (09:42)
--- NOTE | 2023-05-15 16:53 | Hospitalist Progress Note ---
Date of Service May 15, 2023 Assessment & Plan (1) Syncope and collapse: (2) Breakthrough seizure: (3) New onset type 2 diabetes mellitus: (4) Homelessness: (5) Food insecurity: (6) Infestation by bed bug: Plan Syncope versus breakthrough seizure- loss of consciousness surrounding a stressful blood draw situation in the office. Etiologies include but not limited to vasovagal syncope vs breakthrough seizure She has a H/O Posttraumatic seizure disorder and a subtherapeutic Dilantin level ? Medication compliance/missed doses -CT Head:No acute findings in the head/brain. No indication for MRI, EEG per neurology Dilantin regimen was simplified to 200mg BID, reducing her total dose by 60mg daily Repeat dilantin level 05/14 therapeutic at 10. Follow-up with neuro as outpatient DM II--New diagnosis; HbA1C: 9.6 - Continue insulin per protocol. Metformin added after discussion with grab operator and pharmacy - Lifestyle changes were recommended including eliminating sugar-sweetened drinks, and diet modifications including more vegetables and less carbs. -For metformin ER 500mg (need to check insurance coverage for this or utilize $4 list option) and discharge with BSG meter and ways to monitor her BSG at home. - She will need ophthalmology and podiatry referrals in outpatient setting. UTI 2/2 staph lugdenensis - Empirically on Azactam>> transition to nitrofurantoin>>Septra. Blood cultures negative Chronic lymphedema - Venous Doppler from 04/11/23:Currently there is normal compressibility of the deep venous system from the common femoral vein through the proximal calf veins. No superficial venous thrombosis is identified. - Will benefit from following lymphedema clinic as outpatient Possible head lice/bedbug infestation as per EMS - S/P Permethrin application in ED. This is evidence of her poor hygeine referenced by family above. Social issues - Case management to help with discharge planning -Seen by psych-recommendations noted-'overall she shows disseminating capacity to discuss her housing preferences and goals and no current reason to prevent her from living on her own should this be what she chooses to do'. Hold off on Seroquel for now DVT prophylaxis: Lovenox SQ Disposition- Case management following to help with discharge planning. She is medically stable for discharge. Admission and Anticipated Discharge Date Admission Date: May 07, 2023 Subjective Patient was seen and examined at bedside. She has been making calls for housing, no success so far. No other medical issues. No fever, chills, chest pain, shortness of breath, N/V. Normal oral intake. Physical Exam Physical Exam: General: Lying comfortably in bed, not in distress, on room air HEENT: Strabismus, MMM Chest: Clear breath sounds bilaterally, no wheezes or crackles CVS: Regular rate and rhythm, normal heart sounds, no murmur Abdomen: Soft, non tender, not distended, normal bowel sounds Neuro: Awake, alert, oriented, conversing well, non focal Extremities: No cyanosis, clubbing, chronic LE lymphedema Results & Data Results & Data Vital Signs (Past 12 Hours) Vital Signs Temp Pulse Resp BP Pulse Ox O2 Del Method 05/15/23 11:02 36.6 C 66 20 114/71 95 Room Air 05/15/23 07:18 36.6 C 60 16 110/66 95 Room Air
[2023-05-15] MEDS: metFORMIN HCL ER 500 MG TABCR PO SCH (16:59)
[2023-05-16] MEDS: PHENYTOIN SODIUM ER 100 MG CAP PO SCH ×2 (09:07→21:28)
[2023-05-16] MEDS: ENOXAPARIN INJ 40 MG/0.4 ML SYR SQ SCH (09:08)
[2023-05-16] MEDS: INSULIN ASPART PER UNIT CHARGE SC SCH ×4 (09:29→21:23)
[2023-05-16] MEDS: LANTUS PER UNIT CHARGE SQ SCH (09:30)
[2023-05-16] MEDS: metFORMIN HCL ER 500 MG TABCR PO SCH (17:52)
--- NOTE | 2023-05-16 18:07 | Hospitalist Progress Note ---
Date of Service May 16, 2023 Assessment & Plan (1) Syncope and collapse: (2) Breakthrough seizure: (3) New onset type 2 diabetes mellitus: (4) Homelessness: (5) Food insecurity: (6) Infestation by bed bug: Plan Syncope versus breakthrough seizure- loss of consciousness surrounding a stressful blood draw situation in the office. Etiologies include but not limited to vasovagal syncope vs breakthrough seizure She has a H/O Posttraumatic seizure disorder and a subtherapeutic Dilantin level ? Medication compliance/missed doses -CT Head:No acute findings in the head/brain. No indication for MRI, EEG per neurology Dilantin regimen was simplified to 200mg BID, reducing her total dose by 60mg daily Repeat dilantin level 05/14 therapeutic at 10. Follow-up with neuro as outpatient DM II--New diagnosis; HbA1C: 9.6 - Continue insulin per protocol. Metformin added after discussion with family educator and pharmacy - Lifestyle changes were recommended including eliminating sugar-sweetened drinks, and diet modifications including more vegetables and less carbs. -For metformin ER 500mg (need to check insurance coverage for this or utilize $4 list option) and discharge with BSG meter and ways to monitor her BSG at home. - She will need ophthalmology and podiatry referrals in outpatient setting. UTI 2/2 staph lugdenensis - Empirically on Azactam>> transition to nitrofurantoin>>Septra. Blood cultures negative Chronic lymphedema - Venous Doppler from 04/11/23:Currently there is normal compressibility of the deep venous system from the common femoral vein through the proximal calf veins. No superficial venous thrombosis is identified. - Will benefit from following lymphedema clinic as outpatient Possible head lice/bedbug infestation as per EMS - S/P Permethrin application in ED. This is evidence of her poor hygeine referenced by family above. Social issues - Case management to help with discharge planning -Seen by psych-recommendations noted-'overall she shows disseminating capacity to discuss her housing preferences and goals and no current reason to prevent her from living on her own should this be what she chooses to do'. Hold off on Seroquel for now DVT prophylaxis: Lovenox SQ Disposition- Case management following to help with discharge planning. She is medically stable for discharge. Admission and Anticipated Discharge Date Admission Date: May 07, 2023 Subjective Patient was seen and examined at bedside. States she did get good sleep overnight and feels somewhat foggy in the head. She hopes that once to get some good sleep, it will improve. She has been trying to find placement and making phone calls. No fever, chills, chest pain or shortness of breath or nausea or vomiting. No other issues. Review of Systems Review of Systems: All systems reviewed & are unremarkable except as noted in Subjective Physical Exam Physical Exam: General: Lying comfortably in bed, not in distress, on room air HEENT: Strabismus, MMM Chest: Clear breath sounds bilaterally, no wheezes or crackles CVS: Regular rate and rhythm, normal heart sounds, no murmur Abdomen: Soft, non tender, not distended, normal bowel sounds Neuro: Awake, alert, oriented, conversing well, non focal Extremities: No cyanosis, clubbing, chronic LE lymphedema Results & Data Results & Data Vital Signs (Past 12 Hours) Vital Signs Temp Pulse Resp BP Pulse Ox O2 Del Method 05/16/23 14:53 36.7 C 63 16 120/64 94 Room Air 05/16/23 07:58 36.5 C 65 18 138/77 96 Room Air
[2023-05-17] MEDS: ENOXAPARIN INJ 40 MG/0.4 ML SYR SQ SCH (09:39)
[2023-05-17] MEDS: PHENYTOIN SODIUM ER 100 MG CAP PO SCH ×2 (09:40→21:32)
[2023-05-17] MEDS: INSULIN ASPART PER UNIT CHARGE SC SCH ×4 (09:41→21:08)
[2023-05-17] MEDS: LANTUS PER UNIT CHARGE SQ SCH (09:47)
--- NOTE | 2023-05-17 12:20 | Hospitalist Progress Note ---
Date of Service May 17, 2023 Assessment & Plan (1) Syncope and collapse: (2) Breakthrough seizure: (3) New onset type 2 diabetes mellitus: (4) Homelessness: (5) Food insecurity: (6) Infestation by bed bug: Plan Syncope versus breakthrough seizure- loss of consciousness surrounding a stressful blood draw situation in the office. Etiologies include but not limited to vasovagal syncope vs breakthrough seizure She has a H/O Posttraumatic seizure disorder and a subtherapeutic Dilantin level ? Medication compliance/missed doses -CT Head:No acute findings in the head/brain. No indication for MRI, EEG per neurology Dilantin regimen was simplified to 200mg BID, reducing her total dose by 60mg daily Repeat dilantin level 05/14 therapeutic at 10. Follow-up with neuro as outpatient DM II--New diagnosis; HbA1C: 9.6 - Continue insulin per protocol. Metformin added after discussion with clinical unit educator and pharmacy - Lifestyle changes were recommended including eliminating sugar-sweetened drinks, and diet modifications including more vegetables and less carbs. -For metformin ER 500mg (need to check insurance coverage for this or utilize $4 list option) and discharge with BSG meter and ways to monitor her BSG at home. - She will need ophthalmology and podiatry referrals in outpatient setting. UTI 2/2 staph lugdenensis - Empirically on Azactam>> transition to nitrofurantoin>>Septra. Blood cultures negative Chronic lymphedema - Venous Doppler from 04/11/23:Currently there is normal compressibility of the deep venous system from the common femoral vein through the proximal calf veins. No superficial venous thrombosis is identified. - Will benefit from following lymphedema clinic as outpatient Possible head lice/bedbug infestation as per EMS - S/P Permethrin application in ED. This is evidence of her poor hygeine referenced by family above. Social issues - Case management to help with discharge planning -Seen by psych-recommendations noted-'overall she shows disseminating capacity to discuss her housing preferences and goals and no current reason to prevent her from living on her own should this be what she chooses to do'. Hold off on Seroquel for now DVT prophylaxis: Lovenox SQ Disposition- Case management following to help with discharge planning. She is medically stable for discharge. I spoke to his brother Fran over the phone Admission and Anticipated Discharge Date Admission Date: May 07, 2023 Subjective Patient was seen and examined at bedside. She is still making phone calls for housing arrangement and making progress. No new medical issues. No fever, chills, chest pain or shortness of breath no nausea or vomiting. Review of Systems Review of Systems: All systems reviewed & are unremarkable except as noted in Subjective Physical Exam Physical Exam: General: Lying comfortably in bed, not in distress, on room air HEENT: Strabismus, MMM Chest: Clear breath sounds bilaterally, no wheezes or crackles CVS: Regular rate and rhythm, normal heart sounds, no murmur Abdomen: Soft, non tender, not distended, normal bowel sounds Neuro: Awake, alert, oriented, conversing well, non focal Extremities: No cyanosis, clubbing, chronic LE lymphedema Results & Data Results & Data Vital Signs (Past 12 Hours) Vital Signs Temp Pulse Resp BP Pulse Ox O2 Del Method O2 Del Method 05/17/23 11:54 36.3 C L 74 18 144/86 H 91 Room Air 05/17/23 11:59 Room Air 05/17/23 07:58 36.5 C 59 L 18 119/67 95 Room Air
--- NOTE | 2023-05-17 12:35 | Pharmacy Report ---
Pharmacy Glycemic Short Note 2 - Date of Service May 17, 2023 - Glycemic Short BSG Results (Last 24 hours): 05/16/23 05/16/23 05/17/23 16:05 20:08 07:48 POC Glucose 114 H 145 H 94 05/17/23 11:39 POC Glucose 126 H OUTPATIENT ANTIDIABETIC REGIMEN: * n/a * A1c 9.6% on admission ASSESSMENT: 05/17/23 * BSGs remain reasonably well-controlled, ranging 110-163 mg/dL yesterday w/ fasting BSG of 94 mg/dL * Today is day #4 of metformin - patient tolerating * Will slightly reduce basal insulin today, no other changes today * Patient is stable for discharge, but still working on housing arrangement post discharge 05/14/23 * BSGs reasonably well-controlled yesterday, ranging 105-155 mg/dL w/ fasting BSG of 123 mg/dL this morning * Received 18 units of insulin (50/50 basal/bolus split) * Will increase basal insulin today ~10% * Patient will require initiation of therapy upon discharge * Discussed with CDE and hospitalist - metformin to be started this evening BACKGROUND * 73 year old admitted with breakthrough seizure. Pharmacy consulted for glycemic management. No medications listed on home medication list for diabetes. A1c elevated on admission. * Will be conservative and plan to start basal insulin ~0.2 units/kg daily (adj bw) and novolog stress 1/2 PLAN FOR INPATIENT GLYCEMIC CONTROL: * Metformin ER 500 mg PO daily w/ dinner * Basal insulin * Lantus 6 units daily * Bolus insulin * NovoLog per scale ACHS or Q6hrs while NPO * Goal Range: Low 110 mg/dL - High 140 mg/dL * Correction Factor: 50 mg/dL/unit * Nutritional / Prandial insulin per carb ratio of 1 unit per 20 grams CHO consumed
[2023-05-17] MEDS: metFORMIN HCL ER 500 MG TABCR PO SCH (17:24)
[2023-05-18] MEDS: ENOXAPARIN INJ 40 MG/0.4 ML SYR SQ SCH (08:14)
[2023-05-18] MEDS: PHENYTOIN SODIUM ER 100 MG CAP PO SCH ×2 (08:15→21:24)
[2023-05-18] MEDS: INSULIN ASPART PER UNIT CHARGE SC SCH ×4 (08:22→21:24)
[2023-05-18] MEDS: LANTUS PER UNIT CHARGE SQ SCH (08:23)
--- NOTE | 2023-05-18 12:34 | Hospitalist Progress Note ---
Date of Service May 18, 2023 Assessment & Plan (1) Syncope and collapse: (2) Breakthrough seizure: (3) New onset type 2 diabetes mellitus: (4) Homelessness: (5) Food insecurity: (6) Infestation by bed bug: Plan Syncope versus breakthrough seizure- loss of consciousness surrounding a stressful blood draw situation in the office. Etiologies include but not limited to vasovagal syncope vs breakthrough seizure She has a H/O Posttraumatic seizure disorder and a subtherapeutic Dilantin level ? Medication compliance/missed doses -CT Head:No acute findings in the head/brain. No indication for MRI, EEG per neurology Dilantin regimen was simplified to 200mg BID, reducing her total dose by 60mg daily Repeat dilantin level 05/14 therapeutic at 10. Follow-up with neuro as outpatient DM II--New diagnosis; HbA1C: 9.6 - Continue insulin per protocol. Metformin added after discussion with supply chain generalist and pharmacy - Lifestyle changes were recommended including eliminating sugar-sweetened drinks, and diet modifications including more vegetables and less carbs. -For metformin ER 500mg (need to check insurance coverage for this or utilize $4 list option) and discharge with BSG meter and ways to monitor her BSG at home. - She will need ophthalmology and podiatry referrals in outpatient setting. UTI 2/2 staph lugdenensis -Complete antibiotic course, Azactam>> transition to nitrofurantoin>>Septra. Blood cultures negative Chronic lymphedema - Venous Doppler from 04/11/23:Currently there is normal compressibility of the deep venous system from the common femoral vein through the proximal calf veins. No superficial venous thrombosis is identified. - Will benefit from following lymphedema clinic as outpatient Possible head lice/bedbug infestation as per EMS - S/P Permethrin application in ED. This is evidence of her poor hygeine referenced by family above. Social issues - Case management to help with discharge planning -Seen by psych-recommendations noted-'overall she shows disseminating capacity to discuss her housing preferences and goals and no current reason to prevent her from living on her own should this be what she chooses to do'. Hold off on Seroquel for now DVT prophylaxis: Lovenox SQ Disposition- Case management following to help with discharge planning. She is medically stable for discharge. Admission and Anticipated Discharge Date Admission Date: May 07, 2023 Subjective Patient was seen and examined at bedside. She is at baseline and denies any new issues. No fever, chills, chest pain, shortness of breath, nausea or vomiting Review of Systems Review of Systems: All systems reviewed & are unremarkable except as noted in Subjective Physical Exam Physical Exam: General: Lying comfortably in bed, not in distress, on room air HEENT: Strabismus, MMM Chest: Clear breath sounds bilaterally, no wheezes or crackles CVS: Regular rate and rhythm, normal heart sounds, no murmur Abdomen: Soft, non tender, not distended, normal bowel sounds Neuro: Awake, alert, oriented, conversing well, non focal Extremities: No cyanosis, clubbing, chronic LE lymphedema Results & Data Results & Data Vital Signs (Past 12 Hours) Vital Signs Temp Pulse Resp BP Pulse Ox O2 Del Method 05/18/23 08:06 36.9 C 63 20 131/73 94 Room Air Medications Administered Current Inpatient Medications Acetaminophen (Acetaminophen 325 Mg Tab) 650 mg PO Q4H PRN PRN Reason: Pain or Fever Stop: 06/06/23 02:43 Dextrose (Dextrose 50% 50 Ml Syringe) 25 - 50 ml IV UD PRN; Protocol PRN Reason: Hypoglycemia Protocol Stop: 06/06/23 07:53 Enoxaparin Sodium (Enoxaparin Inj 40 Mg/0.4 Ml Syr) 40 mg SQ QAM FABIAN Stop: 06/06/23 08:59 Last Admin: 05/18/23 08:14 Dose: 40 mg Glucagon (Glucagon For Inj 1 Mg Vial) 1 mg SQ UD PRN; Protocol PRN Reason: Hypoglycemia Protocol Stop: 06/06/23 07:53 Glucose (Glucose 10 Tab/Tube) 4 - 8 tab PO UD PRN; Protocol PRN Reason: Hypoglycemia Treatment Stop: 06/06/23 07:53 Glucose (Glucose 40% Gel 15 Gm Tube) 15 - 30 gm PO UD PRN; Protocol PRN Reason: Hypoglycemia Protocol Stop: 06/06/23 07:53 Insulin Aspart (Insulin Aspart Per Unit Charge) 0 units SC ACHS [facility] Stop: 06/06/23 08:14 Last Admin: 05/18/23 08:22 Dose: 1 units Insulin Glargine (Lantus Per Unit Charge) 6 units SQ DAILY FABIAN Stop: 06/14/23 08:59 Last Admin: 05/18/23 08:23 Dose: 6 units Lorazepam (Lorazepam 2 Mg/1 Ml Vial) 1 mg IV Q10M PRN PRN Reason: seizures Stop: 06/06/23 02:43 Metformin HCl (Metformin Hcl Er 500 Mg Tabcr) 500 mg PO DAILY@1700 [facility] Stop: 06/13/23 16:59 Last Admin: 05/17/23 17:24 Dose: 500 mg Miscellaneous (Carbohydrates For Hypoglycemia ) 15 - 30 gm PO UD PRN PRN Reason: Hypoglycemia Protocol Stop: 06/06/23 07:53 Miscellaneous Information (Pharmacy Glycemic Mgmt Consult) 1 each N/A UD PRN; Protocol PRN Reason: Consult Stop: 06/06/23 07:54 Phenytoin Sodium (Phenytoin Sodium Er 100 Mg Cap) 200 mg PO BID [facility] Stop: 06/06/23 08:59 Last Admin: 05/18/23 08:15 Dose: 200 mg
[2023-05-18] MEDS: metFORMIN HCL ER 500 MG TABCR PO SCH (18:16)
[2023-05-19] MEDS: INSULIN ASPART PER UNIT CHARGE SC SCH ×4 (08:34→21:24)
[2023-05-19] MEDS: ENOXAPARIN INJ 40 MG/0.4 ML SYR SQ SCH (08:43)
[2023-05-19] MEDS: LANTUS PER UNIT CHARGE SQ SCH (08:44)
[2023-05-19] MEDS: metFORMIN HCL ER 500 MG TABCR PO SCH ×2 (08:46→17:55)
[2023-05-19] MEDS: PHENYTOIN SODIUM ER 100 MG CAP PO SCH ×2 (08:46→21:24)
--- NOTE | 2023-05-19 13:55 | Hospitalist Progress Note ---
Date of Service May 19, 2023 Assessment & Plan (1) Syncope and collapse: (2) Breakthrough seizure: (3) New onset type 2 diabetes mellitus: (4) Homelessness: (5) Food insecurity: (6) Infestation by bed bug: Plan Syncope versus breakthrough seizure- loss of consciousness surrounding a stressful blood draw situation in the office. Etiologies include but not limited to vasovagal syncope vs breakthrough seizure She has a H/O Posttraumatic seizure disorder and a subtherapeutic Dilantin level ? Medication compliance/missed doses -CT Head:No acute findings in the head/brain. No indication for MRI, EEG per neurology Dilantin regimen was simplified to 200mg BID, reducing her total dose by 60mg daily Repeat dilantin level 05/14 therapeutic at 10. Follow-up with neuro as outpatient DM II--New diagnosis; HbA1C: 9.6 - Continue insulin per protocol. Metformin added after discussion with dredge operator and pharmacy - Lifestyle changes were recommended including eliminating sugar-sweetened drinks, and diet modifications including more vegetables and less carbs. -For metformin ER 500mg (need to check insurance coverage for this or utilize $4 list option) and discharge with BSG meter and ways to monitor her BSG at home. - She will need ophthalmology and podiatry referrals in outpatient setting. UTI 2/2 staph lugdenensis -Complete antibiotic course, Azactam>> transition to nitrofurantoin>>Septra. Blood cultures negative Chronic lymphedema - Venous Doppler from 04/11/23:Currently there is normal compressibility of the deep venous system from the common femoral vein through the proximal calf veins. No superficial venous thrombosis is identified. - Will benefit from following lymphedema clinic as outpatient Possible head lice/bedbug infestation as per EMS - S/P Permethrin application in ED. This is evidence of her poor hygeine referenced by family above. Social issues - Case management to help with discharge planning -Seen by psych-recommendations noted-'overall she shows disseminating capacity to discuss her housing preferences and goals and no current reason to prevent her from living on her own should this be what she chooses to do'. Hold off on Seroquel for now DVT prophylaxis: Lovenox SQ Disposition- Case management following to help with discharge planning. She is medically stable for discharge. Admission and Anticipated Discharge Date Admission Date: May 07, 2023 Subjective Patient was seen and examined at bedside. She feels good. Denies any ongoing issues. No fever, chills, chest pain, shortness of breath, nausea or vomiting. She states she has to pay her bill tomorrow and is wondering if she can get the documents out of her belongings which are sealed. Review of Systems Review of Systems: All systems reviewed & are unremarkable except as noted in Subjective Physical Exam Physical Exam: General: Lying comfortably in bed, not in distress, on room air HEENT: Strabismus, MMM Chest: Clear breath sounds bilaterally, no wheezes or crackles CVS: Regular rate and rhythm, normal heart sounds, no murmur Abdomen: Soft, non tender, not distended, normal bowel sounds Neuro: Awake, alert, oriented, conversing well, non focal Extremities: No cyanosis, clubbing, chronic LE lymphedema Results & Data Results & Data Vital Signs (Past 12 Hours) Vital Signs Temp Pulse Resp BP Pulse Ox O2 Del Method 05/19/23 13:29 36.7 C 64 20 128/62 95 Room Air 05/19/23 07:33 36.8 C 67 16 119/61 92 Room Air
[2023-05-20] MEDS: INSULIN ASPART PER UNIT CHARGE SC SCH ×4 (09:15→20:27)
[2023-05-20] MEDS: LANTUS PER UNIT CHARGE SQ SCH (09:15)
[2023-05-20] MEDS: ENOXAPARIN INJ 40 MG/0.4 ML SYR SQ SCH (09:21)
[2023-05-20] MEDS: metFORMIN HCL ER 500 MG TABCR PO SCH ×2 (09:21→16:55)
[2023-05-20] MEDS: PHENYTOIN SODIUM ER 100 MG CAP PO SCH ×2 (09:21→20:27)
--- NOTE | 2023-05-20 13:34 | Hospitalist Progress Note ---
Date of Service May 20, 2023 Assessment & Plan (1) Syncope and collapse: (2) Breakthrough seizure: (3) New onset type 2 diabetes mellitus: (4) Homelessness: (5) Food insecurity: (6) Infestation by bed bug: Plan Syncope versus breakthrough seizure- loss of consciousness surrounding a stressful blood draw situation in the office. Etiologies include but not limited to vasovagal syncope vs breakthrough seizure She has a H/O Posttraumatic seizure disorder and a subtherapeutic Dilantin level ? Medication compliance/missed doses -CT Head:No acute findings in the head/brain. No indication for MRI, EEG per neurology Dilantin regimen was simplified to 200mg BID, reducing her total dose by 60mg daily Repeat dilantin level 05/14 therapeutic at 10. Follow-up with neuro as outpatient DM II--New diagnosis; HbA1C: 9.6 - Continue insulin per protocol. Metformin added after discussion with administrative services officer and pharmacy - Lifestyle changes were recommended including eliminating sugar-sweetened drinks, and diet modifications including more vegetables and less carbs. -For metformin ER 500mg (need to check insurance coverage for this or utilize $4 list option) and discharge with BSG meter and ways to monitor her BSG at home. - She will need ophthalmology and podiatry referrals in outpatient setting. UTI 2/2 staph lugdenensis -Complete antibiotic course, Azactam>> transition to nitrofurantoin>>Septra. Blood cultures negative Chronic lymphedema - Venous Doppler from 04/11/23:Currently there is normal compressibility of the deep venous system from the common femoral vein through the proximal calf veins. No superficial venous thrombosis is identified. - Will benefit from following lymphedema clinic as outpatient Possible head lice/bedbug infestation as per EMS - S/P Permethrin application in ED. This is evidence of her poor hygeine referenced by family above. Social issues - Case management to help with discharge planning -Seen by psych-recommendations noted-'overall she shows disseminating capacity to discuss her housing preferences and goals and no current reason to prevent her from living on her own should this be what she chooses to do'. Hold off on Seroquel for now DVT prophylaxis: Lovenox SQ Disposition- Case management following to help with discharge planning. Left message for his brother to call back to discuss disposition. She is medically stable for discharge. Admission and Anticipated Discharge Date Admission Date: May 07, 2023 Subjective Patient was seen and examined at bedside. No new issues. States he is still working on her housing issue. No fever, chills, chest pain or shortness of breath, nausea or vomiting. Review of Systems Review of Systems: All systems reviewed & are unremarkable except as noted in Subjective Physical Exam Physical Exam: General: Lying comfortably in bed, not in distress, on room air HEENT: Strabismus, MMM Chest: Clear breath sounds bilaterally, no wheezes or crackles CVS: Regular rate and rhythm, normal heart sounds, no murmur Abdomen: Soft, non tender, not distended, normal bowel sounds Neuro: Awake, alert, oriented, conversing well, non focal Extremities: No cyanosis, clubbing, chronic LE lymphedema Results & Data Results & Data Vital Signs (Past 12 Hours) Vital Signs Temp Pulse Resp BP Pulse Ox O2 Del Method 05/20/23 07:56 36.7 C 72 20 117/65 95 Room Air
[2023-05-21] MEDS: PHENYTOIN SODIUM ER 100 MG CAP PO SCH ×2 (08:52→21:28)
[2023-05-21] MEDS: metFORMIN HCL ER 500 MG TABCR PO SCH ×2 (08:53→17:03)
[2023-05-21] MEDS: ENOXAPARIN INJ 40 MG/0.4 ML SYR SQ SCH (08:54)
[2023-05-21] MEDS: INSULIN ASPART PER UNIT CHARGE SC SCH ×4 (08:58→20:49)
[2023-05-21] MEDS: LANTUS PER UNIT CHARGE SQ SCH (09:03)
--- NOTE | 2023-05-21 16:07 | Hospitalist Progress Note ---
Date of Service May 21, 2023 Assessment & Plan (1) Syncope and collapse: (2) Breakthrough seizure: (3) New onset type 2 diabetes mellitus: (4) Homelessness: (5) Food insecurity: (6) Infestation by bed bug: Plan Syncope versus breakthrough seizure- loss of consciousness surrounding a stressful blood draw situation in the office. Etiologies include but not limited to vasovagal syncope vs breakthrough seizure She has a H/O Posttraumatic seizure disorder and a subtherapeutic Dilantin level ? Medication compliance/missed doses -CT Head:No acute findings in the head/brain. No indication for MRI, EEG per neurology Dilantin regimen was simplified to 200mg BID, reducing her total dose by 60mg daily Repeat dilantin level 05/14 therapeutic at 10. Follow-up with neuro as outpatient DM II--New diagnosis; HbA1C: 9.6 - Continue insulin per protocol. Metformin added after discussion with nursing educator and pharmacy - Lifestyle changes were recommended including eliminating sugar-sweetened drinks, and diet modifications including more vegetables and less carbs. -For metformin ER 500mg (need to check insurance coverage for this or utilize $4 list option) and discharge with BSG meter and ways to monitor her BSG at home. - She will need ophthalmology and podiatry referrals in outpatient setting. UTI 2/2 staph lugdenensis -Complete antibiotic course, Azactam>> transition to nitrofurantoin>>Septra. Blood cultures negative Chronic lymphedema - Venous Doppler from 04/11/23:Currently there is normal compressibility of the deep venous system from the common femoral vein through the proximal calf veins. No superficial venous thrombosis is identified. - Will benefit from following lymphedema clinic as outpatient Possible head lice/bedbug infestation as per EMS - S/P Permethrin application in ED. This is evidence of her poor hygeine referenced by family above. Social issues - Case management to help with discharge planning -Seen by psych-recommendations noted-'overall she shows disseminating capacity to discuss her housing preferences and goals and no current reason to prevent her from living on her own should this be what she chooses to do'. Hold off on Seroquel for now DVT prophylaxis: Lovenox SQ Disposition- Case management following to help with discharge planning. I was unable to talk to his brother again today to discuss disposition. She is medically stable for discharge. Admission and Anticipated Discharge Date Admission Date: May 07, 2023 Subjective Patient was seen and examined at bedside. No new issues. No fever, chills, N/V/SOB. Awaiting housing situation to be fixed prior to discharge Physical Exam Physical Exam: General: Lying comfortably in bed, not in distress, on room air HEENT: Strabismus, MMM Chest: Clear breath sounds bilaterally, no wheezes or crackles CVS: Regular rate and rhythm, normal heart sounds, no murmur Abdomen: Soft, non tender, not distended, normal bowel sounds Neuro: Awake, alert, oriented, conversing well, non focal Extremities: No cyanosis, clubbing, chronic LE lymphedema Results & Data Results & Data Vital Signs (Past 12 Hours) Vital Signs Temp Pulse Resp BP Pulse Ox O2 Del Method 05/21/23 07:17 36.6 C 60 20 120/66 92 Room Air
[2023-05-22] MEDS: ENOXAPARIN INJ 40 MG/0.4 ML SYR SQ SCH (08:36)
[2023-05-22] MEDS: PHENYTOIN SODIUM ER 100 MG CAP PO SCH ×2 (08:36→21:53)
[2023-05-22] MEDS: metFORMIN HCL ER 500 MG TABCR PO SCH ×2 (08:36→17:34)
[2023-05-22] MEDS: INSULIN ASPART PER UNIT CHARGE SC SCH ×4 (08:40→21:47)
[2023-05-22] MEDS: LANTUS PER UNIT CHARGE SQ SCH (08:40)
--- NOTE | 2023-05-22 14:03 | Hospitalist Progress Note ---
Date of Service May 22, 2023 Assessment & Plan (1) Syncope and collapse: (2) Breakthrough seizure: (3) New onset type 2 diabetes mellitus: (4) Homelessness: (5) Food insecurity: (6) Infestation by bed bug: Plan Syncope versus breakthrough seizure Loss of consciousness surrounding a stressful blood draw situation in the office. Etiologies include but not limited to vasovagal syncope vs breakthrough seizure She has a H/O Posttraumatic seizure disorder and a subtherapeutic Dilantin level ?Medication compliance/missed doses CT Head:No acute findings in the head/brain. No indication for MRI, EEG per neurology Dilantin regimen was simplified to 200mg BID Repeat dilantin level 05/14 therapeutic at 10. Follow-up with neuro as outpatient DM II--New diagnosis; HbA1C: 9.6 Continue insulin per protocol. Continue Metformin started on admission Will need to check insurance coverage for this or utilize $4 list option) and discharge with BSG meter and ways to monitor her BSG at home. Provided more education about Lifestyle changes She will need ophthalmology and podiatry referrals in outpatient setting. UTI 2/2 staph ludanyaenensis Completed antibiotic course Chronic lymphedema Venous Doppler from 04/11/23:Currently there is normal compressibility of the deep venous system from the common femoral vein through the proximal calf veins. No superficial venous thrombosis is identified. Will benefit from following lymphedema clinic as outpatient Possible head lice/bedbug infestation as per EMS S/P Permethrin parvez Social issues CM working with patient/family regarding homeless situation Psych eval noted. Patient has decision making capacity DVT prophylaxis: Melonie PRICE I spent a total of 30 minutes coordinating, documenting and providing care for this patient excluding time spent in performance of separately billed services Admission and Anticipated Discharge Date Admission Date: May 07, 2023 Subjective Patient seen and examined Denies any complaints on ROS today Physical Exam Constitutional: + well hydrated; no acute distress Eyes: Strabismus ENMT: external ear and nose normal, oropharynx normal Respiratory: normal respiratory effort, lungs clear to auscultation Cardiovascular: Rate/Rhythm: regular rate and regular rhythm S1 S2 Gastrointestinal (Abdomen): normal bowel sounds, soft, nontender, no hepatosplenomegaly Musculoskeletal: no cyanosis or clubbing, extremities motor strength 5/5 Neurologic: PERRL, EOMI, accommodation nl, no face palsy, no dysarthria Psychiatric: AOx3 Results & Data Results & Data Vital Signs (Past 12 Hours) Vital Signs Temp Pulse Resp BP Pulse Ox O2 Del Method 05/22/23 07:35 36.6 C 71 16 116/73 94 Room Air Laboratory Results Abnormal lab results 05/21/23 05/21/23 05/22/23 Range/Units 16:34 20:37 07:54 POC Glucose 130 H 126 H 109 H (70-99) mg/dl 05/22/23 Range/Units 12:10 POC Glucose 100 H (70-99) mg/dl
[2023-05-23] MEDS: metFORMIN HCL ER 500 MG TABCR PO SCH ×2 (09:41→17:19)
[2023-05-23] MEDS: ENOXAPARIN INJ 40 MG/0.4 ML SYR SQ SCH (09:42)
[2023-05-23] MEDS: PHENYTOIN SODIUM ER 100 MG CAP PO SCH ×2 (09:43→22:12)
[2023-05-23] MEDS: INSULIN ASPART PER UNIT CHARGE SC SCH ×4 (09:51→20:50)
[2023-05-23] MEDS: LANTUS PER UNIT CHARGE SQ SCH (09:52)
--- NOTE | 2023-05-23 14:04 | Hospitalist Progress Note ---
Date of Service May 23, 2023 Assessment & Plan (1) Syncope and collapse: (2) Breakthrough seizure: (3) New onset type 2 diabetes mellitus: (4) Homelessness: (5) Food insecurity: (6) Infestation by bed bug: Plan Syncope versus breakthrough seizure Loss of consciousness surrounding a stressful blood draw situation in the office. Etiologies include but not limited to vasovagal syncope vs breakthrough seizure She has a H/O Posttraumatic seizure disorder and a subtherapeutic Dilantin level ?Medication compliance/missed doses CT Head:No acute findings in the head/brain. No indication for MRI, EEG per neurology Dilantin regimen was simplified to 200mg BID Repeat dilantin level 05/14 therapeutic at 10. Follow-up with neuro as outpatient DM II--New diagnosis; HbA1C: 9.6 Continue insulin per protocol. Continue Metformin started on admission Will need to check insurance coverage for this or utilize $4 list option) and discharge with BSG meter and ways to monitor her BSG at home. Provided more education about Lifestyle changes She will need ophthalmology and podiatry referrals in outpatient setting. UTI 2/2 staph lugdenensis Completed antibiotic course Chronic lymphedema Venous Doppler from 04/11/23:Currently there is normal compressibility of the deep venous system from the common femoral vein through the proximal calf veins. No superficial venous thrombosis is identified. Will benefit from following lymphedema clinic as outpatient Possible head lice/bedbug infestation as per EMS S/P Permethrin parvez Social issues Psych eval noted. Patient has decision making capacity I discussed with brother Fran over the phone. I updated him on conditions/diagnoses managed and that patient has been medically stable for discharge. We discussed options since patient is homeless and patient does not live in [place]. He will like to provide him with list of low cost hotels/motels he can try to book for patient to stay at while they continue looking for senior care housing options for her. notified. Will follow up with brother tomorrow. Possible discharge within next few days DVT prophylaxis: Lovenox DEE I spent a total of 30 minutes coordinating, documenting and providing care for this patient excluding time spent in performance of separately billed services Admission and Anticipated Discharge Date Admission Date: May 07, 2023 Subjective Patient seen and examined Denied any complaints Physical Exam Constitutional: + well hydrated; no acute distress ENMT: external ear and nose normal, oropharynx normal Respiratory: normal respiratory effort, lungs clear to auscultation Cardiovascular: Rate/Rhythm: regular rate and regular rhythm S1 S2 Gastrointestinal (Abdomen): normal bowel sounds, soft, nontender, no hepatosplenomegaly Musculoskeletal: no cyanosis or clubbing, extremities motor strength 5/5 Neurologic: PERRL, EOMI, accommodation nl, no face palsy, no dysarthria Psychiatric: A+Ox3, euthymic affect Results & Data Results & Data Vital Signs (Past 12 Hours) Vital Signs Temp Pulse Resp BP Pulse Ox O2 Del Method 05/23/23 07:24 37.0 C 65 16 109/68 94 Room Air
[2023-05-24] MEDS: ENOXAPARIN INJ 40 MG/0.4 ML SYR SQ SCH (07:45)
[2023-05-24] MEDS: PHENYTOIN SODIUM ER 100 MG CAP PO SCH (07:46)
[2023-05-24] MEDS: metFORMIN HCL ER 500 MG TABCR PO SCH (07:46)
[2023-05-24] MEDS: INSULIN ASPART PER UNIT CHARGE SC SCH ×2 (07:57→11:58)
[2023-05-24] MEDS: LANTUS PER UNIT CHARGE SQ SCH (08:08)
--- NOTE | 2023-05-24 13:49 | Discharge Summary ---
Date of Service May 24, 2023 Admission HPI Per Admitting Provider History obtained from patient and records. Medical history significant for seizure disorder, chronic lymphedema, current homelessness. Patient diagnosed to have a seizure disorder in her teens. Attributed to head injury from accidents. Patient had transient frontal headache symptoms yesterday before going to [facility] office to establish care. Increased urinary frequency/urgency noted yesterday. Patient denies abdominal pain/flank pain/hematuria. No fever, no chills. Patient lost consciousness at the office and was unarousable for about a minute. Bowel, bladder incontinence, and clamminess noted. Mild head bobbing for about 10 seconds. Patient later regained consciousness and had rhythmic twitching of the right side of her face. Patient thinks she might have missed 1 dose of Dilantin medication a few days ago. Last seizure was many years ago as per patient. Patient denies chest pain, SOB. Legs not been more swollen than usual. Patient admits to not sleeping well the last month after apartment eviction. Patient evicted from her apartment of 17 years last month. Patient currently staying with her stepmother yesterday until she was informed by her brother that she cannot go back to stepmother's residence because patient's stepmother has medical concerns and another family member was moving in. Patient making inquiries about [facility]. EMS brought patient to ER. Oral Dilantin tablets administered at the ER. Topical permethrin applied and decontamination done at the ER due to head lice and bedbug infestation concerns communicated by EMS to ED staff. Medical History as above Surgical History : Dental surgery Family History : DM, no seizures Personal/Social history : Non-smoker, no EtOH intake, retired from insurance work Admission Exam Per Admitting Provider GENERAL: Comfortable, obese, no respiratory distress SKIN: Normal color, warm HEENT: Bespectacled, pink palpebral conjunctivae, no ptosis, episodic twitching right face, dry buccal mucosa NECK : Supple, no tenderness CHEST : CTA, no tenderness HEART : RRR, no obvious murmurs ABDOMEN: Some distention, nontender EXTREMITIES : Bilateral LE swelling, minimal LE tenderness, no other conspicuous deformities noted NEUROLOGIC : Coherent, no facial asymmetry, involuntary facial twitching, gait and stance not assessed Principal Diagnosis Possible syncope Seizure disorder New diagnosis of Diabetes mellitus Urinary tract infection Homeless Discharge Exam Constitutional + well hydrated; no acute distress ENMT external ear and nose normal, oropharynx normal Respiratory normal respiratory effort, lungs clear to auscultation Cardiovascular Rate/Rhythm: regular rate and regular rhythm S1 S2 Gastrointestinal (Abdomen) normal bowel sounds, soft, nontender, no hepatosplenomegaly Musculoskeletal no cyanosis or clubbing, extremities motor strength 5/5 Neurologic PERRL, EOMI, accommodation nl, no face palsy, no dysarthria Psychiatric A+Ox3, euthymic affect Discharge Data Allergies Allergy/AdvReac Type Severity Reaction Status Date / Time Penicillins AdvReac Sweaty Verified 05/06/23 20:55 Consultations 05/06/23 21:17 ED Decision to Admit Stat 05/07/23 02:44 Consult Neurology Routine 05/10/23 17:27 Consult Psychiatry Routine Ordered Studies 05/06/23 21:25 CT head/brain wo con Stat Diabetes Follow up Diabetes Follow-up Needed for Newly Diagnosed Diabetes Hospital Course (1) Syncope and collapse: (2) Breakthrough seizure: (3) New onset type 2 diabetes mellitus: (4) Homelessness: (5) Food insecurity: (6) Infestation by bed bug: Plan Syncope versus breakthrough seizure Loss of consciousness surrounding a stressful blood draw situation in the office. Etiologies include but not limited to vasovagal syncope vs breakthrough seizure She has a H/O Posttraumatic seizure disorder and a subtherapeutic Dilantin level ?Medication compliance/missed doses CT Head:No acute findings in the head/brain. No indication for MRI, EEG per neurology Dilantin regimen was simplified to 200mg BID by Neurology Repeat dilantin level 05/14/23 was therapeutic at 10. Follow-up with neuro as outpatient DM II--New diagnosis; HbA1C: 9.6 Continue Metformin started on admission Provided DM education. Patient received glucometer inpatient. Supplies prescribed She will need ophthalmology and podiatry referrals in outpatient setting. UTI 2/2 staph lugdenensis Completed antibiotic course Chronic lymphedema Venous Doppler from 04/11/23:Currently there is normal compressibility of the deep venous system from the common femoral vein through the proximal calf veins. No superficial venous thrombosis is identified. Will benefit from following lymphedema clinic as outpatient Possible head lice/bedbug infestation as per EMS S/P Permethrin parvez Patient had a prolonged hospital stay due to being homeless Patient was not able to secure fdc housing prior to discharge but was able to get a temporary booking at a hotel from where she can follow up her fdc housing plans She stated her insurance should be able to cover her dilantin and metformin Advised to follow up with PCP CM arranged transport on discharge today Total Time Total Time Spent Total Time Spent (In Minutes): 40 Total Time Includes: Examination of the Patient, Discharge Planning, Medication Reconciliation and Other Discharge Plan Discharge Items Patient Disposition: Home - Self-Care Reason For Visit: Loss of consciousness Discharge Diagnosis: Possible syncope Seizure disorder New diagnosis of Diabetes mellitus Urinary tract infection Activity: Resume your previous activity Non-emergency contact: Primary Care Provider and Neurologist Call non-emergency contact if: you have any medication questions and your symptoms worsen Follow-up/Referrals: Kiara Wilson DO [Primary Care Provider] - (Date & Time 05/30/2023 3:00 PM Provider Kiara Wilson DO Department [facility] ) Diet: Carb Consistent or DM2 Addtl Attending Provider Instructions: Ms Tracy Chambers presented to the hospital after an episode of loss of consciousness. You were extensively evaluated and managed for the above listed diagnoses. You were found to have diabetes mellitus and started on metformin. Please monitor your blood glucose as instructed with the glucometer provider. Neurologist changed your dilantin dose to 200mg twice a day. Please ensure follow up with your Primary Doctor and Neurologist It was a pleasure taking care of you. Pending Studies at Discharge: No Stand-Alone Forms: My [facility] [employer], Smoking Cessation Medications and DC Order Prescriptions: New phenytoin sodium extended [Dilantin Extended] 100 mg Capsule 200 mg PO BID 30 Days Qty: 120 0RF metformin 500 mg Tablet Extended Release 24 Hr 500 mg PO BIDM Qty: 60 0RF (DME) lancets [OneTouch Delica Plus Lancet] 33 gauge misc See Rx Instructions .Route Qty: 100 0RF Rx Instructions: Check once a day (DME) OneTouch Verio test strips Strip See Rx Instructions .Route Qty: 100 0RF Rx Instructions: Check once a day Discontinued phenytoin sodium extended [Dilantin Extended] 100 mg capsule 100 mg PO QID Dilantin 30 mg Capsule 30 mg PO BID Discharge Orders: Discharge Order (Routine); Ordered 05/24/23 Ordered By: Carol Stringer Admission Data Admit Date/Time: 05/07/23 01:45 Attending Provider: Carol Stringer I. Admit Provider: Vasile Valdes Primary Care Provider: Kiara Wilson Other Providers: Vasile Valdes ; Esther Coronado ; Miguelina Kerns ; Mynor Uribe ; Frank Galarza Other Interventions: Discharge Summary Assessment (RN) Last Done: 05/24/23 13:56
== END 2023-05-24 15:33 | disposition home or self-care (01) | DRG 101 ==
LOC: ED 17:05 → 2N 05-07 01:45 → SUATTDRO 05-07 01:45 → 2N 05-07 02:19 → 3E 05-21 23:33
DX: Z59.01 Sheltered homelessness; G40.909 Epilepsy, unspecified, not intractable, without status epilepticus; E11.9 Type 2 diabetes mellitus without complications; B95.7 Other staphylococcus as the cause of diseases classified elsewhere; Z88.0 Allergy status to penicillin; N39.0 Urinary tract infection, site not specified; I44.0 Atrioventricular block, first degree; Z59.00 Homelessness unspecified; Z91.148 Patient's other noncompliance with medication regimen for other reason; B85.0 Pediculosis due to Pediculus humanus capitis; S09.8XXS Other specified injuries of head, sequela; B88.8 Other specified infestations; Z59.41 Food insecurity